=== PATIENT | female | born 1935 | race Caucasian/White ===

== ENCOUNTER 2017-05-03 18:34 | Observation (INO) ==
--- NOTE | 2017-05-03 18:58 | Emergency Department Note ---
Disposition Clinical Impression: Elevated CK Altered mental status Qualifiers: Altered mental status type: unspecified Qualified Code(s): R41.82 - Altered mental status, unspecified Disposition: Admitted As Inpatient Condition: Good Referrals: Tawana Downs MD [Primary Care Provider] - Forms: ED Satisfaction Letter Time of Disposition: 20:35 Altered Mental Status HPI - General Chief Complaint: ED Altered Mental Status Stated Complaint: AMS Time Seen by Provider: 05/03/17 18:40 Source: patient Mode of arrival: EMS Limitations: altered mental status Nursing Notes Reviewed: Yes Vital Signs Reviewed: Yes - History of Present Illness HPI Narrative: 81-year-old female unknown medical history presents to the ER via EMS due to altered mental status. Reports that she lives in an independent living facility and was last seen at her baseline yesterday evening. He reports that today she did not go to dinner so her neighbor went to check on her and the patient did not recognize her which is unusual. EMS was called and the patient was prepped for evaluation. He reports that in transit her Accu-Chek was low so she was given D50. Upon arrival her recheck was around 220. She is alert to person only. She denies any current complaints. complaint: altered mental status Onset (ago): day(s) Timing confirmed by: other Pain Severity: none Context: unknown Associated symptoms: Reports: denies other symptoms Treatments prior to arrival: glucose - Related Data Home Medications Medication Instructions Recorded Confirmed Acetaminophen [Tylenol] 650 mg PO BID PRN 07/30/15 11/08/15 Cholecalciferol (Vitamin D3) 400 unit PO DAILY 07/30/15 11/08/15 [Vitamin D3] Diclofenac Sodium [Voltaren] 75 mg PO BID 07/30/15 11/08/15 Magnesium Oxide [Magnesium] 400 mg PO DAILY 07/30/15 11/08/15 Multivitamin/Iron/Folic Acid 1 each PO DAILY 07/30/15 11/08/15 [Centrum Complete Multivit Tab] Omeprazole [PriLOSEC] 20 mg PO BID 07/30/15 11/08/15 Pantoprazole Sodium [Protonix] 40 mg PO DAILY 07/30/15 11/08/15 Hlwxuyr-Uiyymlxzu-Huqe Tablet 1 tab PO DAILY 11/08/15 11/08/15 TraZODone 100 mg PO HS 11/08/15 11/08/15 Allergies Allergy/AdvReac Type Severity Reaction Status Date / Time celecoxib [From Celebrex] Allergy Intermediate Rash Verified 05/15/16 14:37 codeine AdvReac Severe Confusion Verified 05/15/16 14:37 meperidine [From Demerol] AdvReac Severe Nausea Verified 05/15/16 14:37 gabapentin AdvReac Intermediate Confusion Verified 05/15/16 14:37 All systems ED: reviewed and negative except as stated. Constitutional: Denies: fever Cardiovascular: Denies: chest pain Respiratory: Denies: dyspnea Gastrointestinal: Denies: abdominal pain Genitourinary: Denies: dysuria Past Medical History - Past Medical History Attestation: Yes The following information was validated with the patient. Source: old records reviewed Medical history: Reports: arthritis, GERD, other Surgical history: Reports: hip replacement, hysterectomy, knee replacement, other Psychiatric history: Reports: no psych history - Social History Smoking Status: Never smoker Smokeless Tobacco Status: No Alcohol use: Reports: none Drug use: Reports: none Physical Exam - General Limitations: altered mental status General appearance: alert, in no apparent distress - Head Head exam: atraumatic, normocephalic - Eye Eye exam: Present: normal appearance, EOMI - ENT ENT exam: normal exam - Neck Neck exam: Present: normal inspection - Chest Chest inspection: Present: normal inspection - Respiratory Respiratory exam: Present: normal lung sounds bilaterally - Cardiovascular Cardiovascular exam: Present: regular rate, normal rhythm, normal heart sounds - Abdominal Exam Abdominal exam: Present: soft, Non-Tender. Absent: tenderness, distention, guarding, rigidity - Extremities Exam Extremities exam: Present: normal inspection, full ROM - Expanded Upper Extremity Exam Shoulder exam: Present: normal inspection, full ROM Arm exam: Present: normal inspection, full ROM Elbow exam: Present: normal inspection, full ROM Forearm/Wrist exam: Present: normal inspection, full ROM Hand exam: Present: normal inspection, full ROM Vascular exam: Normal: radial pulse - Expanded Lower Extremity Exam Hip/Pelvis exam: Present: normal inspection, full ROM Upper leg exam: Present: normal inspection, full ROM Knee exam: Present: normal inspection, full ROM Lower leg exam: Present: normal inspection, full ROM Ankle exam: Present: normal inspection, full ROM Foot/toe exam: Present: normal inspection, full ROM Neurovascular/Tendon exam: Absent: motor deficit, sensory deficit - Neurological Exam Neurological exam: Present: alert, other (Alert. GCS 14. Moves all extremities equally. Follows commands.). Absent: oriented X3 - Expanded Neurological Exam Patient oriented to: Present: person Coma Scale Eye Opening: Spontaneous Coma Scale Motor Response: Obeys Commands Coma Scale Verbal Response: Confused Coma Scale Total: 14 - Psychiatric Psychiatric exam: Present: normal affect - Skin Skin exam: Present: warm, dry, intact Course Course Narrative: Patient seen and examined. She is alert and oriented 1 here. She has a nonfocal exam and is following commands with a GCS of 14. We will obtain a CT scan of her head as well as an EKG, chest x-ray as well as labs including troponin, TSH and urinalysis. Patient will require admission for altered mental status. Vital Signs Temperature 98.1 F 05/03/17 18:38 Pulse Rate 104 05/03/17 18:38 Respiratory Rate 15 05/03/17 18:38 Blood Pressure 178/93 05/03/17 18:38 O2 Sat by Pulse Oximetry 100 05/03/17 18:38 Temperature 98.1 F 05/03/17 19:03 Pulse Rate 101 05/03/17 20:36 Respiratory Rate 21 05/03/17 20:36 Blood Pressure 124/78 05/03/17 20:36 O2 Sat by Pulse Oximetry 96 05/03/17 20:36 Oxygen Delivery Oxygen Delivery Room Air Altered Mental Status - [facility] Narrative Medical decision making narrative: 81-year-old female presents to the ER due to altered mental status. She is alert here but is otherwise unable to answer any questions. Last known well was yesterday evening. She is afebrile and nontoxic in appearance. She moves all extremities. She does follow commands. Head CT shows no acute antibodies. She has a slight white count however her chest x-ray and urinalysis are unremarkable. Patient admitted to the hospitalist service for altered mental status. - Lab Data Lab results reviewed: Yes I reviewed the patient's lab results. Result diagrams: 05/03/17 18:57 05/03/17 18:57 Lab Results 05/03/17 05/03/17 05/03/17 Range/Units 18:40 18:50 18:50 WBC (4.3-11.1) K/mcL RBC (3.82-4.97) M/mcL Hgb (11.5-15.4) g/dL Hct (35.3-44.9) % MCV (83.0-100.0) fL MCH (28.0-33.3) pg MCHC (31.6-35.5) g/dL RDW (11.5-14.5) % Plt Count (140-400) K/mcL MPV (9.4-12.4) fL Immature Gran % (0-4) % Seg Neutrophils % % Lymphocytes % % Monocytes % % Eosinophils % % Basophils % % Neutrophils # (1.6-8.9) K/mcL Lymphocytes # (0.6-4.6) K/mcL Monocytes # (0.0-1.3) K/mcL Eosinophils # (0.0-0.6) K/mcL Basophils # (0.0-0.2) K/mcL PT (9.4-12.1) Seconds INR APTT (26.0-36.0) Seconds Sodium (136-145) mEq/L Potassium (3.5-4.5) mEq/L Chloride (98-109) mEq/L Carbon Dioxide (19-29) mEq/L BUN (7-20) mg/dL Creatinine (0.57-1.11) mg/dL Est GFR ( Amer) (> 60) Est GFR (Non-Af Amer) (> 60) BUN/Creatinine Ratio (6-26) Glucose (70-99) mg/dL POC Glucose 194 H (58-89) Calculated Osmolality (280-300) Calcium (8.6-10.8) mg/dL Total Bilirubin (0.2-1.2) mg/dL Direct Bilirubin (0.0-0.5) mg/dL Indirect Bilirubin (0.0-1.2) mg/dL AST (5-34) Units/L ALT (0-55) Units/L Alkaline Phosphatase (38-126) Units/L Ammonia (18-72) mcmol/L Creatine Kinase (29-168) Units/L Troponin I (0-0.03) ng/mL Serum Total Protein (6.0-8.3) g/dL Albumin (3.5-5.0) g/dL Globulin (2.4-3.5) g/dL Albumin/Globulin Ratio (1.1-2.2) TSH (0.350-4.840) mcIU/mL Urine Color Yellow (Yellow) Urine Clarity Clear (Clear) Urine pH 7.5 (5.0-8.0) pH Units Ur Specific Boron 1.013 (1.010-1.025) Urine Protein Trace (Neg-Trace) mg/dL Urine Glucose (UA) Normal (Normal) mg/dL Urine Ketones Trace H (Negative) mg/dL Urine Blood Negative (Negative) Urine Nitrite Negative (Negative) Urine Bilirubin Negative (Negative) Urine Urobilinogen Normal (Normal) mg/dL Ur Leukocyte Esterase Negative (Negative) Urine Microscopic RBC 0-3 (0-3) per hpf Urine Microscopic WBC 0-3 (0-3) per hpf Ur Squamous Epith Cells None Seen (None-Few) per lpf Urine Bacteria None Seen (None-Few) per hpf Hyaline Casts None Seen (None-Few) per lpf Ur Culture Indicated? NO (NO) Urine Opiates Screen Negative (Kinaiy=702) ng/mL Ur Barbiturates Screen Negative (Knnlhy=123) ng/mL Ur Phencyclidine Scrn Negative (Cutoff=25) ng/mL Ur Amphetamines Screen Negative (Ffkijs=3704) ng/mL U Benzodiazepines Scrn Negative (Pbrdme=607) ng/mL Urine Cocaine Screen Negative (Cutoff= 300) ng/mL U Marijuana (THC) Screen Negative (Cutoff = 50) ng/mL Ethyl Alcohol (0-10) mg/dL 05/03/17 05/03/17 05/03/17 Range/Units 18:57 18:57 18:57 WBC 14.6 H (4.3-11.1) K/mcL RBC 4.47 (3.82-4.97) M/mcL Hgb 12.6 (11.5-15.4) g/dL Hct 38.0 (35.3-44.9) % MCV 85.0 (83.0-100.0) fL MCH 28.2 (28.0-33.3) pg MCHC 33.2 (31.6-35.5) g/dL RDW 13.7 (11.5-14.5) % Plt Count 239 (140-400) K/mcL MPV 10.1 (9.4-12.4) fL Immature Gran % 0.3 (0-4) % Seg Neutrophils % 84.5 % Lymphocytes % 8.2 % Monocytes % 6.8 % Eosinophils % 0.1 % Basophils % 0.1 % Neutrophils # 12.4 H (1.6-8.9) K/mcL Lymphocytes # 1.2 (0.6-4.6) K/mcL Monocytes # 1.0 (0.0-1.3) K/mcL Eosinophils # 0.0 (0.0-0.6) K/mcL Basophils # 0.0 (0.0-0.2) K/mcL PT 12.0 (9.4-12.1) Seconds INR 1.1 APTT 35.6 (26.0-36.0) Seconds Sodium 142 (136-145) mEq/L Potassium 3.4 L (3.5-4.5) mEq/L Chloride 106 (98-109) mEq/L Carbon Dioxide 22 (19-29) mEq/L BUN 16 (7-20) mg/dL Creatinine 0.84 (0.57-1.11) mg/dL Est GFR ( Amer) > 60 (> 60) Est GFR (Non-Af Amer) > 60 (> 60) BUN/Creatinine Ratio 19 (6-26) Glucose 167 H (70-99) mg/dL POC Glucose (58-89) Calculated Osmolality 299 (280-300) Calcium 8.9 (8.6-10.8) mg/dL Total Bilirubin 0.7 (0.2-1.2) mg/dL Direct Bilirubin 0.3 (0.0-0.5) mg/dL Indirect Bilirubin 0.4 (0.0-1.2) mg/dL AST 25 (5-34) Units/L ALT 19 (0-55) Units/L Alkaline Phosphatase 116 (38-126) Units/L Ammonia (18-72) mcmol/L Creatine Kinase 257 H (29-168) Units/L Troponin I (0-0.03) ng/mL Serum Total Protein 7.2 (6.0-8.3) g/dL Albumin 3.8 (3.5-5.0) g/dL Globulin 3.4 (2.4-3.5) g/dL Albumin/Globulin Ratio 1.1 (1.1-2.2) TSH 1.101 (0.350-4.840) mcIU/mL Urine Color (Yellow) Urine Clarity (Clear) Urine pH (5.0-8.0) pH Units Ur Specific Boron (1.010-1.025) Urine Protein (Neg-Trace) mg/dL Urine Glucose (UA) (Normal) mg/dL Urine Ketones (Negative) mg/dL Urine Blood (Negative) Urine Nitrite (Negative) Urine Bilirubin (Negative) Urine Urobilinogen (Normal) mg/dL Ur Leukocyte Esterase (Negative) Urine Microscopic RBC (0-3) per hpf Urine Microscopic WBC (0-3) per hpf Ur Squamous Epith Cells (None-Few) per lpf Urine Bacteria (None-Few) per hpf Hyaline Casts (None-Few) per lpf Ur Culture Indicated? (NO) Urine Opiates Screen (Ydjgva=101) ng/mL Ur Barbiturates Screen (Ykxvdm=019) ng/mL Ur Phencyclidine Scrn (Cutoff=25) ng/mL Ur Amphetamines Screen (Zvaspz=9420) ng/mL U Benzodiazepines Scrn (Tjcimd=066) ng/mL Urine Cocaine Screen (Cutoff= 300) ng/mL U Marijuana (THC) Screen (Cutoff = 50) ng/mL Ethyl Alcohol < 10 (0-10) mg/dL 05/03/17 05/03/17 Range/Units 18:57 18:57 WBC (4.3-11.1) K/mcL RBC (3.82-4.97) M/mcL Hgb (11.5-15.4) g/dL Hct (35.3-44.9) % MCV (83.0-100.0) fL MCH (28.0-33.3) pg MCHC (31.6-35.5) g/dL RDW (11.5-14.5) % Plt Count (140-400) K/mcL MPV (9.4-12.4) fL Immature Gran % (0-4) % Seg Neutrophils % % Lymphocytes % % Monocytes % % Eosinophils % % Basophils % % Neutrophils # (1.6-8.9) K/mcL Lymphocytes # (0.6-4.6) K/mcL Monocytes # (0.0-1.3) K/mcL Eosinophils # (0.0-0.6) K/mcL Basophils # (0.0-0.2) K/mcL PT (9.4-12.1) Seconds INR APTT (26.0-36.0) Seconds Sodium (136-145) mEq/L Potassium (3.5-4.5) mEq/L Chloride (98-109) mEq/L Carbon Dioxide (19-29) mEq/L BUN (7-20) mg/dL Creatinine (0.57-1.11) mg/dL Est GFR ( Amer) (> 60) Est GFR (Non-Af Amer) (> 60) BUN/Creatinine Ratio (6-26) Glucose (70-99) mg/dL POC Glucose (58-89) Calculated Osmolality (280-300) Calcium (8.6-10.8) mg/dL Total Bilirubin (0.2-1.2) mg/dL Direct Bilirubin (0.0-0.5) mg/dL Indirect Bilirubin (0.0-1.2) mg/dL AST (5-34) Units/L ALT (0-55) Units/L Alkaline Phosphatase (38-126) Units/L Ammonia 21 (18-72) mcmol/L Creatine Kinase (29-168) Units/L Troponin I 0.01 (0-0.03) ng/mL Serum Total Protein (6.0-8.3) g/dL Albumin (3.5-5.0) g/dL Globulin (2.4-3.5) g/dL Albumin/Globulin Ratio (1.1-2.2) TSH (0.350-4.840) mcIU/mL Urine Color (Yellow) Urine Clarity (Clear) Urine pH (5.0-8.0) pH Units Ur Specific Boron (1.010-1.025) Urine Protein (Neg-Trace) mg/dL Urine Glucose (UA) (Normal) mg/dL Urine Ketones (Negative) mg/dL Urine Blood (Negative) Urine Nitrite (Negative) Urine Bilirubin (Negative) Urine Urobilinogen (Normal) mg/dL Ur Leukocyte Esterase (Negative) Urine Microscopic RBC (0-3) per hpf Urine Microscopic WBC (0-3) per hpf Ur Squamous Epith Cells (None-Few) per lpf Urine Bacteria (None-Few) per hpf Hyaline Casts (None-Few) per lpf Ur Culture Indicated? (NO) Urine Opiates Screen (Pprjbp=591) ng/mL Ur Barbiturates Screen (Attwku=193) ng/mL Ur Phencyclidine Scrn (Cutoff=25) ng/mL Ur Amphetamines Screen (Gbxzaj=4113) ng/mL U Benzodiazepines Scrn (Behcvi=379) ng/mL Urine Cocaine Screen (Cutoff= 300) ng/mL U Marijuana (THC) Screen (Cutoff = 50) ng/mL Ethyl Alcohol (0-10) mg/dL - Radiology Data Radiology results reviewed: Yes I reviewed the patient's radiology results. Chest X-Ray 05/03/17 18:41 IMPRESSION: No acute process. D/ / Sung Martins MD / Sung Martins MD Interpreting Provider: Sung Martins MD Head CT 05/03/17 18:41 IMPRESSION: Exam mildly limited by patient motion artifact. No acute intracranial abnormality identified. D/ / Sung Martnis MD / Sung Martins MD Interpreting Provider: Sung Martins MD - EKG Data EKG attestation: Yes I reviewed and interpreted this EKG. EKG results narrative: EKG demonstrated sinus tachycardia with a rate of 104. Right axis deviation. Prolonged NH interval of 208. Other intervals normal. Poor R wave progression. No gross ST elevations or depressions. No acute ischemic findings. S.B.AJohn - S.B.A.RRadha Situation: Demographics, MOA Background: Presenting Complaint, Relevant PMH, Meds, & Allergies Assessment: Vital Signs, Course and respsone to treatment, Exam Concerns, Patient/Family Expectation, Pertinant Lab Results Recommendation: Barrier(s) to disposition, Recommendation based on pending studies, treatments, or consults S.B.A.RRadha Report Given to: Dr. Chantal Shook Repor Time: 20:35 (requests tele) Attestation Statement - Attestation Attestation: I, Hugh Gallegos MD, personally evaluated this patient and discussed their management with the resident physician. I reviewed the resident's note and agree with the documented findings, medical decision making, and plan of care. 81-year-old female presents to the emergency department with altered mental status. Last known well was yesterday. Patient's neighbor went in to check on her because she had not seen her all day and tried to call her and did not get an answer. The neighbor found her in her bed and her night clothes. Patient confused and disoriented and only able to speak a few words. On examination patient is a well-developed obese elderly female in no acute distress. She is alert. She does follow commands. There is no cyanosis or diaphoresis. Patient speaks a few words but unable to answer questions. HEENT grossly normal. PERRL. Mucous membranes are moist. Neck is supple with no obvious tenderness or meningismus. Chest is nontender to palpation. Breath sounds are clear and equal bilaterally. Heart regular rate and rhythm. Abdomen soft with normal bowel sounds. No apparent tenderness. No tympany or distention. Extremities are nontender with no pedal edema. Patient is restless with some involuntary movements of all extremities. No obvious focal deficits. EKG shows sinus tachycardia with a heart rate of 104, no acute changes or arrhythmia. Head CT negative. Chest x-ray negative. Labs reviewed. The hospitalist, Dr. Cornejo, was consulted and accepted admission of the patient.
[2017-05-03 19:04] LABS: Bilirubin,Urine Negative (Negative); Blood,Urine Negative (Negative); Clarity,Urine Clear (Clear); Color,Urine Yellow (Yellow); Glucose,Urine (UA) Normal (Normal); Ketones,Urine Trace mg/dL (Negative); Leukocyte Esterase,Urine Negative (Negative); Nitrite,Urine Negative (Negative); PH,Urine 7.5 pH Units (5.0-8.0); Protein,Urine Trace mg/dL (Neg-Trace); Specific Gravity,Urine 1.013 (1.010-1.025); Urobilinogen,Urine Normal (Normal)
[2017-05-03 19:05] LABS: Basophils % 0.1 %; Eosinophils % 0.1 %; Hemoglobin 12.6 g/dL (11.5-15.4); Immature Granulocytes % 0.3 % (0-4); Lymphocytes # 1.2 K/mcL (0.6-4.6); Lymphocytes % 8.2 %; Mean Corpuscular HGB Conc 33.2 g/dL (31.6-35.5); Mean Corpuscular Hemoglobin 28.2 pg (28.0-33.3); Mean Platelet Volume 10.1 fL (9.4-12.4); Monocytes % 6.8 %; Neutrophils # 12.4 K/mcL (1.6-8.9); Platelet Count 239 K/mcL (140-400); Red Blood Count 4.47 M/mcL (3.82-4.97); Red Cell Distribution Width 13.7 % (11.5-14.5); Segmented Neutrophils % 84.5 %
[2017-05-03 19:06] LABS: Bacteria,Urine None Seen per hpf (None-Few); Hyaline Casts,Urine None Seen per lpf (None-Few); RBC,Urine 0-3 per hpf (0-3); Squamous Epithelial Cell,Urine None Seen per lpf (None-Few); WBC,Urine 0-3 per hpf (0-3)
[2017-05-03 19:15] LABS: INR 1.1
[2017-05-03 19:17] LABS: Amphetamine Screen,Urine Negative ng/mL (Cutoff=1000); Barbiturate Screen,Urine Negative ng/mL (Cutoff=200); Benzodiazepines Screen,Urine Negative ng/mL (Cutoff=200); Cannabinoid Screen,Urine Negative ng/mL (Cutoff = 50); Cocaine Screen,Urine Negative ng/mL (Cutoff= 300); Opiate Screen,Urine Negative ng/mL (Cutoff=300); Phencyclidine Screen,Urine Negative ng/mL (Cutoff=25)
[2017-05-03 19:18] LABS: Activated Partial Thrombo Time 35.6 Seconds (26.0-36.0)
[2017-05-03 19:24] LABS: Alanine Aminotransferase 19 Units/L (0-55); Albumin 3.8 g/dL (3.5-5.0); Albumin/Globulin Ratio 1.1 (1.1-2.2); Alkaline Phosphatase 116 Units/L (38-126); Aspartate Amino Transferase 25 Units/L (5-34); BUN/Creatinine Ratio 19 (6-26); Bilirubin,Direct 0.3 mg/dL (0.0-0.5); Bilirubin,Indirect 0.4 mg/dL (0.0-1.2); Bilirubin,Total 0.7 mg/dL (0.2-1.2); Blood Urea Nitrogen 16 mg/dL (7-20); Calcium 8.9 mg/dL (8.6-10.8); Carbon Dioxide 22 mEq/L (19-29); Chloride 106 mEq/L (98-109); Creatine Kinase 257 Units/L (29-168); Globulin 3.4 g/dL (2.4-3.5); Glucose 167 mg/dL (70-99); Osmolality,Calculated 299 (280-300); Potassium 3.4 mEq/L (3.5-4.5); Sodium 142 mEq/L (136-145); Total Protein 7.2 g/dL (6.0-8.3); eGFR For African Americans > 60 (> 60); eGFR For Non-African Americans > 60 (> 60)
[2017-05-03 19:26] LABS: Ethanol < 10 mg/dL (0-10)
[2017-05-03] MEDS ORDERED: 0.9 % Sodium Chloride 1,000 ML IVC ONE (19:41)
[2017-05-03 19:44] LABS: Thyroid Stimulating Hormone 1.101 mcIU/mL (0.350-4.840)
[2017-05-03] MEDS ORDERED: *HR* Morphine 2 MG/ML SYRINGE IVP PRN (23:41)
[2017-05-03] MEDS ORDERED: Naloxone 0.4 MG/ML INJ IVP PRN (23:41)
[2017-05-03] MEDS ORDERED: *HR* OxyCODONE Immed Rel 5 MG TABLET PO PRN (23:41)
--- NOTE | 2017-05-03 23:51 | Internal Med History&Physical ---
Date of Encounter: 05/03/17 Time of Encounter: 23:46 Assessment and Plan (1) Extrapyramidal and movement disorder, unspecified Current visit: Yes Status: Acute Consider possible tardive dyskinesia possibly caused by Risperdal May start clonazepam, Ativan as needed Neurology consult needs to be called in the morning, consider benztropine Fall precautions MRI of the brain Omeprazole for GI prophylaxis and subcutaneous heparin for DVT prophylaxis. Patient will be admitted for observation. DNR CC arrest DNI. Time spent on this admission 40 minutes (2) Accelerated hypertension Current visit: Yes Status: Acute Order hydralazine IV as needed (3) Leukocytosis Current visit: Yes Status: Acute Unclear etiology, no evidence of infection Qualifiers: Leukocytosis type: unspecified Qualified Code(s): D72.829 - Elevated white blood cell count, unspecified (4) Hypokalemia Current visit: Yes Status: Acute Replete as needed (5) Altered mental status Current visit: Yes Status: Acute Qualifiers: Altered mental status type: unspecified Qualified Code(s): R41.82 - Altered mental status, unspecified Internal Medicine - H&P: HPI Chief complaint: After mental status Admitted From: Emergency Dept History of present illness: Ms. Mariee is a 81 year old female with a past medical history of GERD, hyperlipidemia, who came to the emergency room complaining of confusion. Apparently she did not attend a meal with one of his neighbors which was very unusual, the patient was found at home confused. Apparently her blood sugars were critically low for which she was given D50. Also she has been showing abnormal movements especially in her shoulders and upper and lower extremities. The patient has been on Risperdal for a few months and is not sure whether she has been taking it only once a day or several times a day. White blood cell count is 14.6 potassium 3.[address] scan and did not show any abnormalities but showed motion artifact. Chest x-ray is unremarkable, urine tox screen is negative, blood pressure is 178/93. Heart rate was 104 but is normal at the moment in the 70s. 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) Psychiatric history: no psych history - Past Surgical History Surgical History: hip replacement, hysterectomy, knee replacement, other ( Partial bowel resection) - Social History Smoking Status: Never smoker Smokeless Tobacco Status: No Alcohol use: none Drug use: none - Family History Father Living Status: Hx Family GI Disorders: Yes (AAA) - Additional Family History Additional family history: Mother with breast cancer, father with aneurysm and brother with rheumatic fever Internal Medicine - H&P: Meds Acetaminophen [Tylenol] 650 mg PO BID PRN 07/30/15 [History] Cholecalciferol (Vitamin D3) [Vitamin D3] 400 unit PO DAILY 07/30/15 [History] Diclofenac Sodium [Voltaren] 75 mg PO BID 07/30/15 [History] Magnesium Oxide [Magnesium] 400 mg PO DAILY 07/30/15 [History] Multivitamin/Iron/Folic Acid [Centrum Complete Multivit Tab] 1 each PO DAILY 07/14 [History] Omeprazole [PriLOSEC] 20 mg PO BID 07/30/15 [History] Pantoprazole Sodium [Protonix] 40 mg PO DAILY 07/30/15 [History] Bzzrmko-Kizmwpghr-Gcgy Tablet 1 tab PO DAILY 11/08/15 [History] 3 Allergy/AdvReac Type Severity Reaction Status Date / Time celecoxib [From Celebrex] Allergy Intermediate Rash Verified 05/15/16 14:37 codeine AdvReac Severe Confusion Verified 05/15/16 14:37 meperidine [From Demerol] AdvReac Severe Nausea Verified 05/15/16 14:37 gabapentin AdvReac Intermediate Confusion Verified 05/15/16 14:37 All Systems PM: A 10-system review of systems was performed and is negative for pertinent findings except as documented above in the HPI. Review of systems: Patient is less confused at the moment, denies any chest or shortness of breath , abnormal movements continue. Other systems are also 10 revealed negative - Constitutional Vitals: Temp Pulse Resp BP Pulse Ox 98.5 F 94 18 145/61 94 05/03/17 22:05 05/03/17 22:05 05/03/17 22:05 05/03/17 22:05 05/03/17 22:05 General appearance: Present: A&O X 3 Exam: Constant extrapyramidal abnormal movements and shoulders upper and lower extremities - Head Head exam: Present: atraumatic, normocephalic - Eye Eye exam: Present: PERRL, conjuntiva pink, sclera anicteric Pupils: Present: PERRL - Neck Neck exam general surgery: Present: supple, trachea midline. Absent: lymphadenopathy - Respiratory Respiratory exam: Present: CTAB. Absent: accessory muscle use, rales, rhonchi, wheezes - Cardiovascular Cardiovascular exam: Present: RRR, +S1, +S2. Absent: diastolic murmur, gallop, rubs, systolic murmur - GI/Abdominal GI/Abdominal exam: Present: normal bowel sounds, soft, no peritoneal signs. Absent: distended, tenderness - Extremities Exam Extremities exam: Present: warm, radial pulses palpable and symmetrical. Absent : calf tenderness, cyanotic, pedal edema - Neurological Exam Neurological exam: Present: CN II-XII intact, oriented X3, no focal deficits. Absent: pronater drift, facial droop, speech deficit - Skin Skin exam: Present: dry, intact Internal Med - H&P Results - Labs CBC & Chem 7: 05/03/17 18:57 05/03/17 18:57
[2017-05-04] MEDS: *HR* Heparin 5,000 UNIT/ML VIAL SQ SCH ×3 (00:21→17:40)
[2017-05-04] MEDS: clonazePAM 0.5 MG TABLET PO SCH ×3 (00:21→20:34)
[2017-05-04] MEDS: D5% in 0.45% NACL w KCl 10 MEQ/1,000 ML MLS IVC SCH ×2 (00:51→10:58)
[2017-05-04 04:02] LABS: Hemoglobin 11.5 g/dL (11.5-15.4); Mean Corpuscular HGB Conc 32.9 g/dL (31.6-35.5); Mean Corpuscular Hemoglobin 28.6 pg (28.0-33.3); Mean Corpuscular Volume 87.1 fL (83.0-100.0); Mean Platelet Volume 10.7 fL (9.4-12.4); Platelet Count 237 K/mcL (140-400); Red Blood Count 4.02 M/mcL (3.82-4.97); Red Cell Distribution Width 13.9 % (11.5-14.5)
[2017-05-04 04:19] LABS: BUN/Creatinine Ratio 18 (6-26); Blood Urea Nitrogen 14 mg/dL (7-20); Calcium 8.6 mg/dL (8.6-10.8); Carbon Dioxide 22 mEq/L (19-29); Chloride 109 mEq/L (98-109); Glucose 117 mg/dL (70-99); Magnesium 1.9 mg/dL (1.6-2.6); Osmolality,Calculated 294 (280-300); Potassium 3.5 mEq/L (3.5-4.5); Sodium 141 mEq/L (136-145); eGFR For African Americans > 60 (> 60); eGFR For Non-African Americans > 60 (> 60)
--- NOTE | 2017-05-04 14:48 | Neurology - Consult Note ---
Date of Encounter: 05/04/17 Time of Encounter: 14:45 Assessment and Plan (1) Altered mental status Current Visit: No Status: Resolved This patient did experience transient alterations in mental status which have rapidly improved back to her normal baseline. Differentials to consider might have been transient hypoglycemia, perhaps it was a mixup with her medications. Seizure activity is lower on the differential however she did have elevated white count as well as elevated CK levels. At this juncture I would simply like to obtain an EEG I do not feel that it is necessary to start antiepileptic drugs at this time. Is no evidence of acute ischemia, no evidence of central nervous system infection. Qualifiers: Altered mental status type: transient alteration of awareness Qualified Code(s): R40.4 - Transient alteration of awareness History of Present Illness HPI: Ms. Mariee is a 81 year old female who is seen for neurologic evaluation secondary to acute mental status changes which now resolved. Apparently on the evening of 05/02/2017 patient was found by neighbors and other family members to been acutely confused. The patient does recall falling and states that she left the door unlocked purposely so that friends or family might be able to come in and help her. Her granddaughter is present today and mentions that yesterday she was very confused and difficulty following commands and had difficulty with verbal expression. She denies headache. She does live home alone. Apparently she had not known today and according to EMS when he initially tried a One Touch glucose reading it did not register. I did ask her whether or not it was possible that she may have gotten her meds mixed up and she states that it could possible. There was no tongue biting or loss of bladder or bowel continence. Currently she is pretty much back to her normal baseline. She works as a volunteer here at the hospital. MRI scan of the brain does reveal chronic ischemic changes particularly in the isaiah and in the centrum semiovale ovale however no acute infarct is identified. 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) Psychiatric history: no psych history - Past Surgical History Surgical History: hip replacement, hysterectomy, knee replacement, other ( Partial bowel resection) - Social History Smoking Status: Never smoker Smokeless Tobacco Status: No Alcohol use: none Drug use: none - Family History Father Living Status: Hx Family GI Disorders: Yes (AAA) Medications and Allergies Acetaminophen [Tylenol] 650 mg PO BID PRN 07/30/15 [History] Cholecalciferol (Vitamin D3) [Vitamin D3] 400 unit PO DAILY 07/30/15 [History] Diclofenac Sodium [Voltaren] 75 mg PO BID 07/30/15 [History] Magnesium Oxide [Magnesium] 400 mg PO DAILY 07/30/15 [History] Multivitamin/Iron/Folic Acid [Centrum Complete Multivit Tab] 1 each PO DAILY 07/14 [History] Omeprazole [PriLOSEC] 20 mg PO BID 07/30/15 [History] Ygmomrh-Sxhdqvfwb-Ugum Tablet 1 tab PO DAILY 11/08/15 [History] Baclofen 20 mg PO TID 05/04/17 [History] Fluticasone Propionate Nasal [Flonase] 2 spr NS DAILY 05/04/17 [History] Sertraline [Zoloft] 100 mg PO DAILY 05/04/17 [History] 3 Allergy/AdvReac Type Severity Reaction Status Date / Time celecoxib [From Celebrex] Allergy Intermediate Rash Verified 05/15/16 14:37 codeine AdvReac Severe Confusion Verified 05/15/16 14:37 meperidine [From Demerol] AdvReac Severe Nausea Verified 05/15/16 14:37 gabapentin AdvReac Intermediate Confusion Verified 05/15/16 14:37 All Systems: A 10-system review of systems was performed and is negative for pertinent findings except as documented above in the HPI. Review of Systems: 10 point review of systems is consistent with a history of present illness and otherwise negative. Physical Examination - Vital Signs Vital Signs: Initial Vital Signs Temp Pulse Resp BP Pulse Ox 98.1 F 104 15 178/93 100 05/03/17 18:38 05/03/17 18:38 05/03/17 18:38 05/03/17 18:38 05/03/17 18:38 - Neurologic Detailed motor examination: full strength in all major muscle groups Motor examination - right side: 5/5: deltoids, biceps, triceps, wrist flexion, wrist extension, local coordinator, hip flexors, tibialis Anterior, quadriceps, toe extension (EHL), plantarflexion Motor examination - left side: 5/5: deltoids, biceps, triceps, wrist flexion, wrist extension, hip flexors, local coordinator, quadriceps, tibialis Anterior, toe extension (EHL), plantarflexion Mental Status Examination: awake, alert, oriented to person, oriented to place, oriented to time, follows commands appropriately, answers questions appropriately, no agnosia, no aphasia, no aproxia Cranial nerve examination: PERRL, EOMI, visual venegas intact, corneal reflexes brisk symmetrically, sensory to face intact, mastication intact, no facial asymmetry is present, no dysarthria, hearing is intact symmetrically, soft palate elevates bilaterally upon phonation, gag reflex intact, flexes SCM and trapezius muscles symmetrically with full power, tongue protrudes midline, no atrophy or facial fasiculations present Cerebellar examination: no dysmetria, no truncal ataxia, no difficulty with rapid alternating movements Results - Laboratory Findings CBC and BMP: 05/04/17 03:06 05/04/17 03:06 Abnormal lab findings: Abnormal lab results WBC 14.4 K/mcL (4.3-11.1) H 05/04/17 03:06 Hct 35.0 % (35.3-44.9) L 05/04/17 03:06 Neutrophils # 12.4 K/mcL (1.6-8.9) H 05/03/17 18:57 Glucose 117 mg/dL (70-99) H 05/04/17 03:06 POC Glucose 98 (58-89) H 05/03/17 22:16 Creatine Kinase 257 Units/L (29-168) H 05/03/17 18:57 Urine Ketones Trace mg/dL (Negative) H 05/03/17 18:50 Consult Discharge Plan - Plan Referrals: Tawana Downs MD [Primary Care Provider] -
--- NOTE | 2017-05-04 15:17 | Internal Med Progress Note ---
Date of Encounter: 05/04/17 Time of Encounter: 12:15 - Assessment and plan (1) Acute encephalopathy Current Visit: Yes Status: Resolved Assessment and plan: Could be metabolic due to hypoglycemia. No history of diabetes, blood sugars currently normal. Check hemoglobin A1c. Currently at baseline mental status. CT head showed no acute abnormality. Follow-up MRI brain. Neurology consult appreciated, recommended EEG to rule out underlying seizures. (2) Extrapyramidal and movement disorder, unspecified Current Visit: Yes Status: Acute Assessment and plan: Improved. Started on low-dose Klonopin for possible tardive dyskinesia. Risperdal on hold. Follow-up neurology. (3) Hypokalemia Current Visit: Yes Status: Resolved (4) Leukocytosis Current Visit: Yes Status: Acute Assessment and plan: Likely secondary to encephalopathy, possible seizure and metabolic stress. No e/ o infection at this time. Qualifiers: Leukocytosis type: unspecified Qualified Code(s): D72.829 - Elevated white blood cell count, unspecified (5) Essential hypertension Current Visit: Yes Status: Chronic (6) Elevated CK Current Visit: Yes Status: Acute Assessment and plan: Improving creatinine kinase, likely related to recent weakness and lying in bed for prolonged time. - Subjective Interval history: Reports feeling better; no involuntary movements or speech abnormality since yesterday, per family at bedside; no focal weakness, paresthesias, headache, dyspnea, abdominal pain, nausea, vomiting; - Constitutional Vitals: Temp Pulse Resp BP Pulse Ox 97.4 F L 70 16 159/78 98 05/04/17 10:00 05/04/17 10:00 05/04/17 10:00 05/04/17 10:00 05/04/17 10:00 General appearance: Present: A&O X 3, answers questions appropriately - Respiratory Respiratory exam: Present: CTAB. Absent: accessory muscle use, rales, rhonchi, wheezes - Cardiovascular Cardiovascular exam: Present: RRR, +S1, +S2. Absent: diastolic murmur, gallop, rubs, systolic murmur - GI/Abdominal GI/Abdominal exam: Present: normal bowel sounds, soft, no peritoneal signs. Absent: distended, tenderness - Extremities Exam Extremities exam: Present: full ROM, warm, radial pulses palpable and symmetrical. Absent: calf tenderness, cyanotic, pedal edema - Neurological Exam Neurological exam: Present: CN II-XII intact, oriented X3, no focal deficits. Absent: pronater drift, facial droop, speech deficit Internal Medicine: Result - Labs CBC & Chem 7: 05/04/17 03:06 05/04/17 03:06 Labs: Short CBC 05/04/17 Range/Units 03:06 WBC 14.4 H (4.3-11.1) K/mcL Hgb 11.5 (11.5-15.4) g/dL Hct 35.0 L (35.3-44.9) % Plt Count 237 (140-400) K/mcL BMP 05/04/17 03:06 Sodium 141 Potassium 3.5 Chloride 109 Carbon Dioxide 22 BUN 14 Creatinine 0.77 Glucose 117 H Calcium 8.6 - ABG Interpretation ABG results: PT/INR, D-dimer PT 12.0 Seconds (9.4-12.1) 05/03/17 18:57 - Impressions Impressions Brain MRI 05/04/17 23:41 IMPRESSION: No evidence of acute intracranial abnormality. Mild chronic small vessel ischemic disease within the periventricular white matter. Mild atrophy. D/ / 05/04/2017 14:25:20 [facility] MD [facility] Inter[facility]ting Provider: Jerson Wright MD Consult Discharge Plan - Plan Referrals: Tawana Downs MD [Primary Care Provider] -
--- NOTE | 2017-05-04 16:45 | Electrocardiograph Report ---
[address] [place], [place] [address] Test Date: 2017-05-03 Pat Name: Massiel Mariee Department: 103 Room: 3B64 Gender: F Chief Unit Forester: [id number] : 1935 Requested By: Petra Giron Order Number: [id number] Reading MD: Lisa Odom Measurements Intervals [place] Rate: 104 P: 35 VA: 208 QRS: -28 QRSD: 70 T: 14 QT: 406 QTc: 467 Interpretive Statements SINUS TACHYCARDIA VOLTAGE CRITERIA FOR LVH POSSIBLE ANTERIOR MYOCARDIAL INFARCTION OF INDETERMINATE AGE POSSIBLE INFERIOR MYOCARDIAL INFARCTION OF INDETERMINATE AGE PROLONGED QT INTERVAL Electronically Signed On 05-04-2017 16:44:19 EST by Lisa Odom
[2017-05-05] MEDS: *HR* LORazepam 0.5 MG TABLET PO PRN (04:04)
[2017-05-05] MEDS: *HR* Heparin 5,000 UNIT/ML VIAL SQ SCH ×2 (06:25→18:14)
[2017-05-05 06:56] LABS: Basophils # 0.1 K/mcL (0.0-0.2); Basophils % 0.5 %; Eosinophils # 0.1 K/mcL (0.0-0.6); Eosinophils % 1.3 %; Hematocrit 40.6 % (35.3-44.9); Immature Granulocytes % 0.4 % (0-4); Lymphocytes % 21.3 %; Mean Corpuscular Volume 87.5 fL (83.0-100.0); Mean Platelet Volume 10.5 fL (9.4-12.4); Monocytes # 1.1 K/mcL (0.0-1.3); Monocytes % 11.7 %; Neutrophils # 6.2 K/mcL (1.6-8.9); Platelet Count 236 K/mcL (140-400); Red Blood Count 4.64 M/mcL (3.82-4.97); Red Cell Distribution Width 14.3 % (11.5-14.5); Segmented Neutrophils % 64.8 %
[2017-05-05 07:05] LABS: BUN/Creatinine Ratio 14 (6-26); Blood Urea Nitrogen 10 mg/dL (7-20); Calcium 9.2 mg/dL (8.6-10.8); Carbon Dioxide 19 mEq/L (19-29); Chloride 108 mEq/L (98-109); Glucose 98 mg/dL (70-99); Osmolality,Calculated 287 (280-300); Potassium 3.5 mEq/L (3.5-4.5); Sodium 139 mEq/L (136-145); eGFR For African Americans > 60 (> 60); eGFR For Non-African Americans > 60 (> 60)
[2017-05-05] MEDS: clonazePAM 0.5 MG TABLET PO SCH ×2 (09:32→20:58)
--- NOTE | 2017-05-05 10:07 | EEG/EMG/Oth Biometrics Report ---
EEG Procedure Report Date of procedure: 05/05/17 EEG Procedure: Routine EEG Procedure Note: This is a report of a 21 channel bipolar and referential montage EEG. A posterior dominant rhythm of 8 Hz moderate voltage alpha frequency is identified symmetrically in the posterior head regions. This rhythm attenuates symmetrically with eye opening. Hyperventilation is not performed during the recording. There is no sleep architecture identified during the study. Photic stimulation is performed and does not produce a driving response. EKG rhythm strip reveals normal sinus rhythm at 78 beats per minute. Impressions: This EEG recording is within normal limits. There is no evidence of epileptiform activity identified during the recording. Comment: A normal EEG does not preclude a diagnosis of seizure or epilepsy. If the clinical suspicion for seizure activity is high, serial EEGs or perhaps a prolonged recording may increase the yield. Please correlate clinically.
[2017-05-05] MEDS ORDERED: Ondansetron 4 MG/2 ML VIAL IVP ONE (10:26)
[2017-05-05] MEDS: Ondansetron 4 MG/2 ML VIAL IVP PRN (15:46)
[2017-05-05] MEDS ORDERED: Ondansetron 4 MG/2 ML VIAL ONE (15:46)
--- NOTE | 2017-05-05 16:46 | Neurology Progress Note ---
Date of Encounter: 05/05/17 Time of Encounter: 16:41 Assessment and Plan (1) Altered mental status Current Visit: No Status: Resolved Qualifiers: Altered mental status type: transient alteration of awareness Qualified Code(s): R40.4 - Transient alteration of awareness Subjective Interval history: Chart reviewed, pt. seen and examined. She has been stable without cognitive changes since admission. Neurologic work up was negative. No further complaints. Objective - Constitutional Vitals: Temp Pulse Resp BP Pulse Ox 98.6 F 98 16 152/87 96 05/05/17 15:57 05/05/17 15:57 05/05/17 15:57 05/05/17 15:57 05/05/17 15:57 - Neurological Exam Motor Examination: Present: full strength in all major muscle groups Motor examination - right side: 5/5: deltoids, biceps, triceps, wrist flexion, wrist extension, lithographic press operator, hip flexors, tibialis Anterior, quadriceps, toe extension (EHL), plantarflexion Motor examination - left side: 5/5: deltoids, biceps, triceps, wrist flexion, wrist extension, hip flexors, lithographic press operator, quadriceps, tibialis Anterior, toe extension (EHL), plantarflexion Sensation intact: Present: intact Mental Status Examination: Present: awake, alert, oriented to person, oriented to place, oriented to time, follows commands appropriately, answers questions appropriately, no agnosia, no aphasia, no aproxia Cranial nerve examination: Present: PERRL, EOMI, visual venegas intact, corneal reflexes brisk symmetrically, sensory to face intact, mastication intact, no facial asymmetry is present, no dysarthria, hearing is intact symmetrically, soft palate elevates bilaterally upon phonation, gag reflex intact, flexes SCM and trapezius muscles symmetrically with full power, tongue protrudes midline, no atrophy or facial fasiculations present Cerebellar examination: Present: no dysmetria, no truncal ataxia, no difficulty with rapid alternating movements Results - Laboratory Findings CBC and BMP: 05/05/17 06:00 05/05/17 06:00 Abnormal lab findings: Abnormal lab results POC Glucose 98 (58-89) H 05/04/17 16:25 Creatine Kinase 257 Units/L (29-168) H 05/03/17 18:57 Urine Ketones Trace mg/dL (Negative) H 05/03/17 18:50 Consult Discharge Plan - Plan Referrals: Tawana Downs MD [Primary Care Provider] -
--- NOTE | 2017-05-05 18:24 | Internal Med Progress Note ---
Date of Encounter: 05/05/17 Time of Encounter: 15:30 - Assessment and plan (1) Acute encephalopathy Current Visit: Yes Status: Resolved Assessment and plan: Resolved. Patient has returned to baseline. Could have been metabolic due to hypoglycemia. No history of diabetes, blood sugars currently normal. A1c 5.0%. Currently at baseline mental status. CT head showed no acute abnormality. MRI brain showed no acute intracranial abnormality, mild chronic small vessel ischemic disease, mild atrophy . Patient was seen by neurology and and EEG was ordered that was within normal limits. No evidence of epileptiform activity. Vital signs are stable, labs have all returned within normal limits. Unclear etiology other than possible hypoglycemia or medication changes. Patient has returned to baseline. (2) Elevated CK Current Visit: Yes Status: Acute Assessment and plan: Improving creatinine kinase, likely related to recent weakness and lying in bed for prolonged time. Will recheck in the morning to ensure that it is still declining. (3) Accelerated hypertension Current Visit: Yes Status: Acute Assessment and plan: Patient does not appear to take any indication for hypertension at home. She has been mildly hypertensive, slightly above goal since she has been year. She has hydralazine when necessary. Will add low dose of hydrochlorothiazide and monitor for effectiveness. (4) Extrapyramidal and movement disorder, unspecified Current Visit: Yes Status: Acute Assessment and plan: Improved. Patient has been started on low-dose Klonopin for possible cardiac dyskinesia. Most likely due to Risperdal which has been held. Neurology has evaluated the patient. They have signed off. We will continue Klonopin and patient could follow up with primary care. (5) Leukocytosis Current Visit: Yes Status: Resolved Assessment and plan: Result. White count 9.6 today. Qualifiers: Leukocytosis type: unspecified Qualified Code(s): D72.829 - Elevated white blood cell count, unspecified (6) Hypokalemia Current Visit: Yes Status: Resolved Assessment and plan: Resolved. - Time Spent With Patient less than 15 minutes - Subjective Interval history: Patient was seen and assessed at 1530. She reports nausea and vomiting today. She states that she has been having vomiting since her fall at home on Thursday. She denies dizziness, headache, blurred vision, abdominal pain, chest pain, shortness of breath. - Constitutional Vitals: Temp Pulse Resp BP Pulse Ox 98.6 F 98 16 152/87 96 05/05/17 15:57 05/05/17 15:57 05/05/17 15:57 05/05/17 15:57 05/05/17 15:57 General appearance: Present: cooperative, A&O X 3, pleasant, no acute distress, answers questions appropriately - Head Head exam: Present: atraumatic, normal inspection, normocephalic - Eye Eye exam: Present: normal appearance, PERRL, conjuntiva pink, sclera anicteric - Neck Neck exam general surgery: Present: normal inspection, supple, trachea midline. Absent: lymphadenopathy, tenderness - Respiratory Respiratory exam: Present: CTAB. Absent: accessory muscle use, decreased breath sounds, rales, respiratory distress, rhonchi, wheezes - Cardiovascular Cardiovascular exam: Present: RRR, +S1, +S2. Absent: diastolic murmur, gallop, rubs, systolic murmur - GI/Abdominal GI/Abdominal exam: Present: normal bowel sounds, soft. Absent: distended, hepatomegaly, tenderness - Extremities Exam Extremities exam: Present: normal capillary refill, normal inspection, warm, radial pulses palpable and symmetrical. Absent: calf tenderness, cyanotic, pedal edema, tenderness - Neurological Exam Neurological exam: Present: alert, oriented X3, no focal deficits, strengths equal and symetr throughout. Absent: motor sensory deficit, facial droop, speech deficit - Skin Skin exam: Present: dry, intact, normal color, warm. Absent: rash Internal Medicine: Result - Labs CBC & Chem 7: 05/05/17 06:00 05/05/17 06:00 Labs: Short CBC 05/05/17 Range/Units 06:00 WBC 9.6 (4.3-11.1) K/mcL Hgb 13.0 D (11.5-15.4) g/dL Hct 40.6 (35.3-44.9) % Plt Count 236 (140-400) K/mcL Neutrophils # 6.2 (1.6-8.9) K/mcL BMP 05/05/17 06:00 Sodium 139 Potassium 3.5 Chloride 108 Carbon Dioxide 19 BUN 10 Creatinine 0.70 Glucose 98 Calcium 9.2 - ABG Interpretation ABG results: PT/INR, D-dimer PT 12.0 Seconds (9.4-12.1) 05/03/17 18:57 - Impressions Impressions Brain MRI 05/04/17 23:41 IMPRESSION: No evidence of acute intracranial abnormality. Mild chronic small vessel ischemic disease within the periventricular white matter. Mild atrophy. D/ /04/2017 14:25:20 Jerson Wright MD / [facility] Interpreting Provider: Jerson Wright MD Consult Discharge Plan - Plan Referrals: Tawana Downs MD [Primary Care Provider] -
[2017-05-06] MEDS: *HR* LORazepam 0.5 MG TABLET PO PRN (02:35)
[2017-05-06 05:44] LABS: Basophils % 0.4 %; Eosinophils # 0.1 K/mcL (0.0-0.6); Eosinophils % 1.7 %; Hematocrit 35.8 % (35.3-44.9); Hemoglobin 11.8 g/dL (11.5-15.4); Immature Granulocytes % 0.4 % (0-4); Mean Corpuscular Hemoglobin 28.2 pg (28.0-33.3); Mean Corpuscular Volume 85.6 fL (83.0-100.0); Mean Platelet Volume 10.4 fL (9.4-12.4); Monocytes % 12.6 %; Neutrophils # 4.5 K/mcL (1.6-8.9); Platelet Count 233 K/mcL (140-400); Red Blood Count 4.18 M/mcL (3.82-4.97); Red Cell Distribution Width 14.5 % (11.5-14.5); Segmented Neutrophils % 58.9 %
[2017-05-06] MEDS: *HR* Heparin 5,000 UNIT/ML VIAL SQ SCH ×2 (05:56→17:58)
[2017-05-06 06:08] LABS: BUN/Creatinine Ratio 16 (6-26); Blood Urea Nitrogen 12 mg/dL (7-20); Calcium 8.8 mg/dL (8.6-10.8); Carbon Dioxide 23 mEq/L (19-29); Chloride 105 mEq/L (98-109); Creatine Kinase 141 Units/L (29-168); Glucose 90 mg/dL (70-99); Osmolality,Calculated 287 (280-300); Potassium 3.4 mEq/L (3.5-4.5); Sodium 139 mEq/L (136-145); eGFR For African Americans > 60 (> 60); eGFR For Non-African Americans > 60 (> 60)
[2017-05-06] MEDS: clonazePAM 0.5 MG TABLET PO SCH ×2 (08:31→21:11)
--- NOTE | 2017-05-06 17:58 | Internal Med Progress Note ---
Date of Encounter: 05/06/17 Time of Encounter: 08:45 - Assessment and plan (1) Acute encephalopathy Current Visit: Yes Status: Resolved Assessment and plan: Resolved. Patient has returned to baseline. Could have been metabolic due to hypoglycemia. No history of diabetes, blood sugars currently normal. A1c 5.0%. Currently at baseline mental status. CT head showed no acute abnormality. MRI brain showed no acute intracranial abnormality, mild chronic small vessel ischemic disease, mild atrophy . Patient was seen by neurology and and EEG was ordered that was within normal limits. No evidence of epileptiform activity. Vital signs are stable, labs have all returned within normal limits. Unclear etiology other than possible hypoglycemia or medication changes. Patient has returned to baseline. Chest X-Ray 05/03/17 18:41 IMPRESSION: No acute process. D/ / Sung Martins MD / Sung Martins MD Interpreting Provider: Sung Martins MD Head CT 05/03/17 18:41 IMPRESSION: Exam mildly limited by patient motion artifact. No acute intracranial abnormality identified. D/ / Sung Martins MD / Sung Martins MD Interpreting Provider: Sung Martins MD Brain MRI 05/04/17 23:41 IMPRESSION: No evidence of acute intracranial abnormality. Mild chronic small vessel ischemic disease within the periventricular white matter. Mild atrophy. D/ / 05/04/2017 14:25:20 Jerson Wright MD / [facility] Interpreting Provider: Jerson Wright MD (2) Elevated CK Current Visit: Yes Status: Resolved Assessment and plan: Improving creatinine kinase, likely related to recent weakness and lying in bed for prolonged time. Returned to WNL. REsolved. (3) Accelerated hypertension Current Visit: Yes Status: Acute Assessment and plan: Patient does not appear to take any medication for hypertension at home. She has been mildly hypertensive, slightly above goal since she has been admitted. She has hydralazine when necessary. Will add low dose of hydrochlorothiazide and monitor for effectiveness. (4) Extrapyramidal and movement disorder, unspecified Current Visit: Yes Status: Resolved (5) Leukocytosis Current Visit: Yes Status: Resolved Qualifiers: Leukocytosis type: unspecified Qualified Code(s): D72.829 - Elevated white blood cell count, unspecified (6) Hypokalemia Current Visit: Yes Status: Resolved Assessment and plan: K= 3.4 today, will recheck in the morning after supplementation today. - Time Spent With Patient less than 15 minutes - Subjective Interval history: Patient was seen and assessed at 0845. Pt states that she feels better today and wants to go to [facility] for [facility]. SS is on board. She denies HART, n/v/d, abd pain, dizziness. She denies chest pain or SOB. - Constitutional Vitals: Temp Pulse Resp BP Pulse Ox 98.3 F 97 16 154/81 95 05/06/17 16:41 05/06/17 16:41 05/06/17 16:41 05/06/17 16:41 05/06/17 16:41 General appearance: Present: cooperative, A&O X 3, pleasant, no acute distress, answers questions appropriately - Head Head exam: Present: atraumatic, normal inspection, normocephalic - Eye Eye exam: Present: normal appearance, conjuntiva pink, sclera anicteric - Neck Neck exam general surgery: Present: tenderness, supple, trachea midline. Absent : lymphadenopathy - Respiratory Respiratory exam: Present: CTAB. Absent: accessory muscle use, chest wall tenderness, rales, respiratory distress, rhonchi, wheezes - Cardiovascular Cardiovascular exam: Present: RRR, +S1, +S2. Absent: diastolic murmur, gallop, rubs, systolic murmur - GI/Abdominal GI/Abdominal exam: Present: normal bowel sounds, soft. Absent: distended, hepatomegaly, tenderness - Extremities Exam Extremities exam: Present: warm, radial pulses palpable and symmetrical. Absent : calf tenderness, cyanotic, pedal edema - Neurological Exam Neurological exam: Present: alert, oriented X3, no focal deficits. Absent: altered, facial droop, speech deficit - Skin Skin exam: Present: dry, intact, normal color, warm. Absent: rash Internal Medicine: Result - Labs CBC & Chem 7: 05/06/17 05:13 05/06/17 05:13 Labs: Short CBC 05/06/17 Range/Units 05:13 WBC 7.6 (4.3-11.1) K/mcL Hgb 11.8 (11.5-15.4) g/dL Hct 35.8 (35.3-44.9) % Plt Count 233 (140-400) K/mcL Neutrophils # 4.5 (1.6-8.9) K/mcL BMP 05/06/17 05:13 Sodium 139 Potassium 3.4 L Chloride 105 Carbon Dioxide 23 BUN 12 Creatinine 0.76 Glucose 90 Calcium 8.8 - ABG Interpretation ABG results: PT/INR, D-dimer PT 12.0 Seconds (9.4-12.1) 05/03/17 18:57 Consult Discharge Plan - Plan Referrals: Tawana Downs MD [Primary Care Provider] -
[2017-05-06] MEDS ORDERED: hydroCHLOROthiazide 25 MG TABLET PO SCH (18:30)
[2017-05-06] MEDS: hydroCHLOROthiazide 25 MG TABLET PO SCH (21:10)
[2017-05-07] MEDS: *HR* LORazepam 0.5 MG TABLET PO PRN (02:05)
[2017-05-07] MEDS: *HR* Heparin 5,000 UNIT/ML VIAL SQ SCH ×2 (06:17→17:24)
[2017-05-07] MEDS: clonazePAM 0.5 MG TABLET PO SCH ×2 (08:51→22:37)
[2017-05-07] MEDS: hydroCHLOROthiazide 25 MG TABLET PO SCH ×2 (08:51→20:57)
[2017-05-07] MEDS: Ondansetron 4 MG/2 ML VIAL IVP PRN (08:51)
--- NOTE | 2017-05-07 10:28 | Internal Med Progress Note ---
Date of Encounter: 05/07/17 Time of Encounter: 10:00 - Assessment and plan (1) Acute encephalopathy Current Visit: Yes Status: Resolved Assessment and plan: Resolved. Patient has returned to baseline. Could have been metabolic due to hypoglycemia. No history of diabetes, blood sugars currently normal. A1c 5.0%. Currently at baseline mental status. CT head showed no acute abnormality. MRI brain showed no acute intracranial abnormality, mild chronic small vessel ischemic disease, mild atrophy . Patient was seen by neurology and and EEG was ordered that was within normal limits. No evidence of epileptiform activity. Vital signs are stable, labs have all returned within normal limits. Unclear etiology other than possible hypoglycemia or medication changes. Patient has returned to baseline. Pt had some transiet confusion this a.m. States that she thought she was to go on a car ride with a friend to a construction site. Upon my exam, pt was back to baseline. We have collected a urine to look for UTI. Chest X-Ray 05/03/17 18:41 IMPRESSION: No acute process. D/ / Sung Martins MD / Sung Martins MD Interpreting Provider: Sung Martins MD Head CT 05/03/17 18:41 IMPRESSION: Exam mildly limited by patient motion artifact. No acute intracranial abnormality identified. D/ / Sung Martins MD / Sung Martins MD Interpreting Provider: Sung Martins MD Brain MRI 05/04/17 23:41 IMPRESSION: No evidence of acute intracranial abnormality. Mild chronic small vessel ischemic disease within the periventricular white matter. Mild atrophy. D/ / 05/04/2017 14:25:20 Jerson Wright MD / yoselin Interpreting Provider: Jerson Wright MD (2) Accelerated hypertension Current Visit: Yes Status: Acute Assessment and plan: Blood pressure is well controlled. Continue home medication. Continue to monitor vital signs per admission order. (3) Physical deconditioning Current Visit: Yes Status: Acute Assessment and plan: Pt appears to be weak and requires assistance to sit up in bed. She has been evaluated by PT/OT and will be placed in SNF for rehab at [facility] when she is accepted. Continue PT/OT Fall precautions Bed alarm Up to chair (4) DVT prophylaxis Current Visit: No Status: Acute Assessment and plan: Pt has been on Heparin SQ since admission. Up to chair. - Time Spent With Patient less than 15 minutes - Subjective Interval history: Patient was seen and assessed at 1000. She states that she feels well. She admits to having some confusion this a.m., but has returned to her baseline. She denies SOB, n/v/d, chest pain, abdominal pain, or dizziness. She states that previously she had similar episode of confusion and had a UTI. - Constitutional Vitals: Temp Pulse Resp BP Pulse Ox 98.0 F 104 16 138/71 96 05/07/17 07:19 05/07/17 07:19 05/07/17 07:19 05/07/17 07:19 05/07/17 07:19 General appearance: Present: cooperative, A&O X 3, pleasant, no acute distress, answers questions appropriately - Head Head exam: Present: atraumatic, normal inspection, normocephalic - Eye Eye exam: Present: normal appearance, PERRL, conjuntiva pink, sclera anicteric Pupils: Present: PERRL - Neck Neck exam general surgery: Present: supple, trachea midline - Respiratory Respiratory exam: Present: CTAB. Absent: accessory muscle use, chest wall tenderness, decreased breath sounds, rales, respiratory distress, rhonchi, wheezes - Cardiovascular Cardiovascular exam: Present: RRR, +S1, +S2. Absent: diastolic murmur, gallop, rubs, systolic murmur - GI/Abdominal GI/Abdominal exam: Present: normal bowel sounds, soft, no peritoneal signs. Absent: distended, hepatomegaly, tenderness - Extremities Exam Extremities exam: Present: normal capillary refill, normal inspection, warm, radial pulses palpable and symmetrical. Absent: calf tenderness, cyanotic, pedal edema, tenderness - Neurological Exam Neurological exam: Present: alert, normal gait, oriented X3, no focal deficits, strengths equal and symetr throughout. Absent: motor sensory deficit, facial droop, speech deficit - Skin Skin exam: Present: dry, intact, normal color, warm. Absent: rash Internal Medicine: Result - Labs CBC & Chem 7: 05/06/17 05:13 05/06/17 05:13 - ABG Interpretation ABG results: PT/INR, D-dimer PT 12.0 Seconds (9.4-12.1) 05/03/17 18:57 Consult Discharge Plan - Plan Referrals: Tawana Downs MD [Primary Care Provider] -
[2017-05-07 11:02] LABS: Bilirubin,Urine Negative (Negative); Blood,Urine Negative (Negative); Clarity,Urine Clear (Clear); Color,Urine Yellow (Yellow); Glucose,Urine (UA) Normal (Normal); Ketones,Urine Negative (Negative); Leukocyte Esterase,Urine Moderate (Negative); Nitrite,Urine Negative (Negative); PH,Urine 6.5 pH Units (5.0-8.0); Protein,Urine Negative (Neg-Trace); Specific Gravity,Urine 1.012 (1.010-1.025); Urobilinogen,Urine Normal (Normal)
[2017-05-07 11:07] LABS: Bacteria,Urine None Seen per hpf (None-Few); Hyaline Casts,Urine None Seen per lpf (None-Few); RBC,Urine 0-3 per hpf (0-3); Squamous Epithelial Cell,Urine Moderate per lpf (None-Few)
[2017-05-08] MEDS: *HR* LORazepam 0.5 MG TABLET PO PRN ×3 (02:04→20:42)
[2017-05-08 05:53] LABS: Basophils % 0.2 %; Eosinophils # 0.1 K/mcL (0.0-0.6); Eosinophils % 1.7 %; Hematocrit 37.3 % (35.3-44.9); Hemoglobin 12.3 g/dL (11.5-15.4); Immature Granulocytes % 0.2 % (0-4); Lymphocytes # 1.9 K/mcL (0.6-4.6); Lymphocytes % 22.9 %; Mean Corpuscular Hemoglobin 27.9 pg (28.0-33.3); Mean Corpuscular Volume 84.6 fL (83.0-100.0); Mean Platelet Volume 10.5 fL (9.4-12.4); Monocytes # 1.2 K/mcL (0.0-1.3); Monocytes % 15.2 %; Neutrophils # 4.9 K/mcL (1.6-8.9); Platelet Count 279 K/mcL (140-400); Red Blood Count 4.41 M/mcL (3.82-4.97); Red Cell Distribution Width 14.4 % (11.5-14.5); Segmented Neutrophils % 59.8 %
[2017-05-08 06:24] LABS: BUN/Creatinine Ratio 18 (6-26); Blood Urea Nitrogen 14 mg/dL (7-20); Calcium 9.1 mg/dL (8.6-10.8); Carbon Dioxide 24 mEq/L (19-29); Chloride 99 mEq/L (98-109); Glucose 105 mg/dL (70-99); Osmolality,Calculated 277 (280-300); Potassium 3.3 mEq/L (3.5-4.5); Sodium 133 mEq/L (136-145); eGFR For African Americans > 60 (> 60); eGFR For Non-African Americans > 60 (> 60)
[2017-05-08] MEDS: *HR* Heparin 5,000 UNIT/ML VIAL SQ SCH ×2 (06:29→16:53)
[2017-05-08] MEDS: hydroCHLOROthiazide 25 MG TABLET PO SCH ×2 (08:40→20:40)
[2017-05-08] MEDS: clonazePAM 0.5 MG TABLET PO SCH (08:40)
--- NOTE | 2017-05-08 14:11 | Internal Med Progress Note ---
Date of Encounter: 05/08/17 Time of Encounter: 10:30 - Assessment and plan (1) Accelerated hypertension Current Visit: Yes Status: Acute Assessment and plan: Blood pressure is well controlled. Continue home medication. Continue to monitor vital signs per admission order. I have added lisinopril for better management. Continue to monitor, adjust as needed. (2) Physical deconditioning Current Visit: Yes Status: Acute Assessment and plan: Pt appears to be weak and requires assistance to sit up in bed. Her gait appears to be steady, though she does require assistance. She has been evaluated by PT/OT and will be placed in SNF for rehab at [facility] when she is accepted. Continue PT/OT Fall precautions Bed alarm Up to chair (3) DVT prophylaxis Current Visit: No Status: Acute Assessment and plan: Pt has been on Heparin SQ since admission. Up to chair. - Time Spent With Patient less than 15 minutes - Subjective Interval history: Patient was seen and assessed at 1030. Patient was alert and awake, I assisted her to the bathroom. Her gait is steady although she requires assistance. She denies headache, blurred vision, nausea, vomiting, diaphoresis, shortness of breath, abdominal pain. Patient is oriented to month, day, year, and who the president is. She states that she is in the [place] alf at this time. She is easily reoriented and remembers that she is at the hospital. - Constitutional Vitals: Temp Pulse Resp BP Pulse Ox 97.9 F 114 16 165/92 99 05/08/17 11:11 05/08/17 12:24 05/08/17 11:11 05/08/17 12:24 05/08/17 11:11 General appearance: Present: cooperative, A&O X 3, pleasant, no acute distress, answers questions appropriately - Head Head exam: Present: atraumatic, normal inspection, normocephalic - Eye Eye exam: Present: normal appearance, conjuntiva pink, sclera anicteric - Neck Neck exam general surgery: Present: supple, trachea midline. Absent: lymphadenopathy - Respiratory Respiratory exam: Present: CTAB. Absent: accessory muscle use, rales, rhonchi, wheezes - Cardiovascular Cardiovascular exam: Present: RRR, +S1, +S2. Absent: diastolic murmur, gallop, rubs, systolic murmur - GI/Abdominal GI/Abdominal exam: Present: normal bowel sounds, soft. Absent: distended, hepatomegaly, tenderness - Extremities Exam Extremities exam: Present: warm, radial pulses palpable and symmetrical. Absent : calf tenderness, cyanotic, pedal edema - Neurological Exam Neurological exam: Present: alert, oriented X3, no focal deficits. Absent: facial droop, speech deficit - Skin Skin exam: Present: dry, intact, normal color, warm. Absent: rash Internal Medicine: Result - Labs CBC & Chem 7: 05/08/17 05:03 05/08/17 05:03 Labs: Short CBC 05/08/17 Range/Units 05:03 WBC 8.2 (4.3-11.1) K/mcL Hgb 12.3 (11.5-15.4) g/dL Hct 37.3 (35.3-44.9) % Plt Count 279 (140-400) K/mcL Neutrophils # 4.9 (1.6-8.9) K/mcL BMP 05/08/17 05:03 Sodium 133 L Potassium 3.3 L Chloride 99 Carbon Dioxide 24 BUN 14 Creatinine 0.79 Glucose 105 H Calcium 9.1 - ABG Interpretation ABG results: PT/INR, D-dimer PT 12.0 Seconds (9.4-12.1) 05/03/17 18:57 Consult Discharge Plan - Plan Referrals: Tawana Downs MD [Primary Care Provider] -
[2017-05-08] MEDS: Melatonin 3 MG TABLET PO SCH (21:29)
[2017-05-09 04:32] LABS: BUN/Creatinine Ratio 23 (6-26); Blood Urea Nitrogen 18 mg/dL (7-20); Calcium 9.1 mg/dL (8.6-10.8); Carbon Dioxide 23 mEq/L (19-29); Chloride 99 mEq/L (98-109); Glucose 115 mg/dL (70-99); Osmolality,Calculated 279 (280-300); Potassium 3.4 mEq/L (3.5-4.5); Sodium 133 mEq/L (136-145); eGFR For African Americans > 60 (> 60); eGFR For Non-African Americans > 60 (> 60)
[2017-05-09 04:51] LABS: Basophils % 0.4 %; Eosinophils # 0.1 K/mcL (0.0-0.6); Eosinophils % 1.5 %; Hematocrit 37.5 % (35.3-44.9); Hemoglobin 12.2 g/dL (11.5-15.4); Immature Granulocytes % 0.4 % (0-4); Lymphocytes # 1.9 K/mcL (0.6-4.6); Lymphocytes % 23.2 %; Mean Corpuscular HGB Conc 32.5 g/dL (31.6-35.5); Mean Corpuscular Hemoglobin 27.6 pg (28.0-33.3); Mean Corpuscular Volume 84.8 fL (83.0-100.0); Mean Platelet Volume 10.6 fL (9.4-12.4); Monocytes # 1.1 K/mcL (0.0-1.3); Monocytes % 13.9 %; Neutrophils # 4.9 K/mcL (1.6-8.9); Platelet Count 313 K/mcL (140-400); Red Blood Count 4.42 M/mcL (3.82-4.97); Red Cell Distribution Width 14.2 % (11.5-14.5); Segmented Neutrophils % 60.6 %
[2017-05-09] MEDS: *HR* Heparin 5,000 UNIT/ML VIAL SQ SCH ×2 (05:25→16:59)
[2017-05-09] MEDS: hydroCHLOROthiazide 25 MG TABLET PO SCH ×2 (08:32→20:56)
--- NOTE | 2017-05-09 10:00 | Internal Med Progress Note ---
Date of Encounter: 05/09/17 Time of Encounter: 08:15 - Assessment and plan (1) Confusion Current Visit: Yes Status: Acute Assessment and plan: Pt was alert and oriented yesterday morning, she was able to answer questions. Primary nurse reported that patient was confused later that day. A urine was ordered which was negative. Discussed patient with family members at bedside last night, they state that she is not at her baseline despite being able to answer questions appropriately and holding appropriate conversations. I discussed this with patient and family for a little bit longer and patient eventually stated that she had seen someone with her head stuck in the sharps container and they were dangling out of the sharps container. We ordered a chest CT to assess for possible early pneumonia, it was negative. Head CT was also negative. I ordered melatonin 3 mg at bedtime since I suspected some delirium. Patient slept well overnight and is back at her baseline. She is alert and oriented caries on appropriate conversations. She knows where she is , yesterday she was unaware where she was. We will continue the melatonin and continue to monitor patient's condition. (2) Accelerated hypertension Current Visit: Yes Status: Acute Assessment and plan: Blood pressure is well controlled. Continue home medication. Continue to monitor vital signs per admission order. I have added lisinopril for better management. Blood pressure is closer to goal. Continue to monitor, adjust as needed. (3) Physical deconditioning Current Visit: Yes Status: Acute Assessment and plan: Pt appears to be weak and requires assistance to sit up in bed. Her gait appears to be steady, though she does require assistance. She has been evaluated by PT/OT and will be placed in SNF for rehab at [facility] per their recommendation. Pt is still waiting on placement and probably will not be accepted until 05/11. Pt is aware. Continue PT/OT Fall precautions Bed alarm Up to chair (4) DVT prophylaxis Current Visit: No Status: Acute Assessment and plan: Pt has been on Heparin SQ since admission. Up to chair. - Time Spent With Patient less than 15 minutes - Subjective Interval history: Patient was seen and assessed at 0815. Patient was alert and awake, oriented today. Pt had confusion last night that was uncharacteristic for her, family was at bedside and verbalized concern for infection. Chest xray and head CT ordered, both negative. Pt was given Melatonin for sleep and feels much better this a.m and is no longer confused. She denies chest pain, HART, n/v/d, abdominal pain, dizziness, or any other complaints. She is aware that she is still waiting on placement at [facility] and will most likely be here until Thursday. - Constitutional Vitals: Temp Pulse Resp BP Pulse Ox 97.4 F L 81 16 159/89 98 05/09/17 07:23 05/09/17 07:23 05/09/17 07:23 05/09/17 07:23 05/09/17 08:38 General appearance: Present: cooperative, A&O X 3, pleasant, no acute distress, answers questions appropriately - Head Head exam: Present: atraumatic, normal inspection, normocephalic - Eye Eye exam: Present: normal appearance, conjuntiva pink, sclera anicteric - Neck Neck exam general surgery: Present: supple, trachea midline. Absent: lymphadenopathy - Respiratory Respiratory exam: Present: CTAB. Absent: accessory muscle use, chest wall tenderness, decreased breath sounds, rales, respiratory distress, rhonchi, wheezes - Cardiovascular Cardiovascular exam: Present: RRR, +S1, +S2. Absent: diastolic murmur, gallop, rubs, systolic murmur - GI/Abdominal GI/Abdominal exam: Present: normal bowel sounds, soft. Absent: distended, hepatomegaly, tenderness - Extremities Exam Extremities exam: Present: normal capillary refill, warm, radial pulses palpable and symmetrical. Absent: calf tenderness, cyanotic, pedal edema - Neurological Exam Neurological exam: Present: alert, oriented X3, no focal deficits. Absent: altered, facial droop, speech deficit - Skin Skin exam: Present: dry, intact, normal color, warm. Absent: rash Internal Medicine: Result - Labs CBC & Chem 7: 05/09/17 03:57 05/09/17 03:57 Labs: Short CBC 05/09/17 Range/Units 03:57 WBC 8.1 (4.3-11.1) K/mcL Hgb 12.2 (11.5-15.4) g/dL Hct 37.5 (35.3-44.9) % Plt Count 313 (140-400) K/mcL Neutrophils # 4.9 (1.6-8.9) K/mcL BMP 05/09/17 03:57 Sodium 133 L Potassium 3.4 L Chloride 99 Carbon Dioxide 23 BUN 18 Creatinine 0.80 Glucose 115 H Calcium 9.1 - ABG Interpretation ABG results: PT/INR, D-dimer PT 12.0 Seconds (9.4-12.1) 05/03/17 18:57 - Impressions Impressions Chest X-Ray 05/08/17 18:08 IMPRESSION: No acute abnormality detected. D/ / Dwight Flores MD / Dwight Flores MD Interpreting Provider: Dwight Flores MD Head CT 05/08/17 19:23 IMPRESSION: No acute intracranial abnormality. D/ / Dwight Flores MD / Dwight Flores MD Interpreting Provider: Dwight Flores MD Consult Discharge Plan - Plan Referrals: Tawana Downs MD [Primary Care Provider] -
[2017-05-09] MEDS: Melatonin 3 MG TABLET PO SCH (20:56)
[2017-05-09] MEDS: *HR* LORazepam 0.5 MG TABLET PO PRN (23:49)
[2017-05-09] MEDS: Acetaminophen 325 MG TABLET PO PRN (23:54)
[2017-05-10] MEDS: *HR* Heparin 5,000 UNIT/ML VIAL SQ SCH ×2 (06:20→18:04)
[2017-05-10] MEDS: hydroCHLOROthiazide 25 MG TABLET PO SCH ×2 (08:56→19:56)
--- NOTE | 2017-05-10 16:36 | Internal Med Progress Note ---
Date of Encounter: 05/10/17 Time of Encounter: 16:15 - Assessment and plan (1) Confusion Current Visit: Yes Status: Acute Assessment and plan: Pt was alert and oriented, she was able to answer questions. Primary nurse reported that patient was confused later that day. A urine was ordered which was negative. Discussed patient with family members at bedside last night, they state that she is not at her baseline despite being able to answer questions appropriately and holding appropriate conversations. I discussed this with patient and family for a little bit longer and patient eventually stated that she had seen someone with her head stuck in the sharps container and they were dangling out of the sharps container. We ordered a chest CT to assess for possible early pneumonia, it was negative. Head CT was also negative. I ordered melatonin 3 mg at bedtime since I suspected some delirium. Patient slept well overnight and is back at her baseline. She is alert and oriented caries on appropriate conversations. She knows where she is, yesterday she was unaware where she was. We will continue the melatonin and continue to monitor patient's condition. (2) Accelerated hypertension Current Visit: Yes Status: Acute Assessment and plan: Blood pressure is well controlled. Continue home medication. Continue to monitor vital signs per admission order. I have added lisinopril and increased it to 10mg po daily for better management. Blood pressure is closer to goal. Continue to monitor, adjust as needed. (3) Physical deconditioning Current Visit: Yes Status: Acute Assessment and plan: Pt appears to be weak and requires assistance to sit up in bed. Her gait appears to be steady, though she does require assistance. She has been evaluated by PT/OT and will be placed in SNF for rehab at [facility] per their recommendation. Pt is still waiting on placement and probably will not be accepted until tomorrow. Pt is aware. Continue PT/OT Fall precautions Bed alarm Up to chair (4) DVT prophylaxis Current Visit: No Status: Acute Assessment and plan: Pt has been on Heparin SQ since admission. Up to chair. - Time Spent With Patient less than 15 minutes - Subjective Interval history: Patient was seen and assessed at 1615. Patient was alert and awake, oriented today. She denies chest pain, HART, n/v/d, abdominal pain, dizziness, SOB. She is aware that she is still waiting on placement at [facility] and will most likely be here until Thursday. - Constitutional Vitals: Temp Pulse Resp BP Pulse Ox 98.0 F 94 16 154/91 90 05/10/17 15:00 05/10/17 15:00 05/10/17 15:00 05/10/17 15:00 05/10/17 15:00 General appearance: Present: cooperative, A&O X 3, pleasant, no acute distress, answers questions appropriately - Head Head exam: Present: atraumatic, normal inspection, normocephalic - Eye Eye exam: Present: normal appearance, conjuntiva pink, sclera anicteric - Neck Neck exam general surgery: Present: supple, trachea midline. Absent: lymphadenopathy, tenderness - Respiratory Respiratory exam: Present: CTAB. Absent: accessory muscle use, chest wall tenderness, decreased breath sounds, rales, respiratory distress, rhonchi, wheezes - Cardiovascular Cardiovascular exam: Present: RRR, +S1, +S2. Absent: diastolic murmur, gallop, rubs, systolic murmur - GI/Abdominal GI/Abdominal exam: Present: hepatomegaly, normal bowel sounds, soft, no peritoneal signs. Absent: distended, tenderness - Extremities Exam Extremities exam: Present: normal capillary refill, normal inspection, warm, radial pulses palpable and symmetrical. Absent: calf tenderness, cyanotic, pedal edema, tenderness - Neurological Exam Neurological exam: Present: alert, oriented X3, no focal deficits, strengths equal and symetr throughout. Absent: altered, motor sensory deficit, facial droop, speech deficit - Skin Skin exam: Present: dry, intact, normal color, warm. Absent: rash Internal Medicine: Result - Labs CBC & Chem 7: 05/09/17 03:57 05/09/17 03:57 - ABG Interpretation ABG results: PT/INR, D-dimer PT 12.0 Seconds (9.4-12.1) 05/03/17 18:57 Consult Discharge Plan - Plan Referrals: Tawana Downs MD [Primary Care Provider] -
[2017-05-10] MEDS: Melatonin 3 MG TABLET PO SCH (19:55)
[2017-05-10] MEDS: Acetaminophen 325 MG TABLET PO PRN (23:39)
[2017-05-11] MEDS: Acetaminophen 325 MG TABLET PO PRN (06:01)
[2017-05-11] MEDS: *HR* Heparin 5,000 UNIT/ML VIAL SQ SCH (06:01)
[2017-05-11] MEDS: hydroCHLOROthiazide 25 MG TABLET PO SCH (08:59)
--- NOTE | 2017-05-11 13:08 | Discharge Summary ---
Date of Encounter: 05/11/17 Time of Encounter: 10:15 - Discharge Diagnosis (1) Confusion Priority: Primary Status: Acute Comments: Pt had episode of confusion that has since resolved. A urine was ordered which was negative. Discussed patient with family members at bedside at the time of the incident, they state that she is not at her baseline despite being able to answer questions appropriately and holding appropriate conversations. I discussed this with patient and family for a little bit longer and patient eventually stated that she had seen someone with her head stuck in the sharps container and they were dangling out of the sharps container. We ordered a chest CT to assess for possible early pneumonia, it was negative. Head CT was also negative. I ordered melatonin 3 mg at bedtime since I suspected some delirium. Patient slept well overnight and is back at her baseline. She is alert and oriented caries on appropriate conversations. She knows where she is , yesterday she was unaware where she was. Patient seemed to have had some hospital-induced delirium and has since recovered. Recommend continuing the melatonin after discharge. (2) Accelerated hypertension Priority: Secondary Status: Acute Comments: Blood pressures been well controlled since admission. Patient will continue her home medications. Since the course of her stay, I have added lisinopril 10 mg daily for better management. Blood pressure is well below goal. Frequent blood pressure monitoring after discharge encouraged in case there are any medication changes necessary. (3) Physical deconditioning Priority: Secondary Status: Acute Comments: Pt appears to be weak and requires assistance to sit up in bed. Her gait appears to be steady, though she does require assistance. She has been evaluated by PT/OT and will be placed in SNF for rehab at [facility] per their recommendation. Pt has been waiting for several days on placement, she is accepted today. Pt is aware. Continue PT/OT to discharge Fall precautions (4) DVT prophylaxis Priority: Secondary Status: Acute Comments: Patient has been up to chair several times daily, heparin subcutaneous daily. - Discharge Medications Home Medications: Acetaminophen [Tylenol] 650 mg PO BID PRN 07/30/15 [History] Cholecalciferol (Vitamin D3) [Vitamin D3] 400 unit PO DAILY 07/30/15 [History] Diclofenac Sodium [Voltaren] 75 mg PO BID 07/30/15 [History] Magnesium Oxide [Magnesium] 400 mg PO DAILY 07/30/15 [History] Multivitamin/Iron/Folic Acid [Centrum Complete Multivit Tab] 1 each PO DAILY 07/14 [History] Omeprazole [PriLOSEC] 20 mg PO BID 07/30/15 [History] Qjlstzj-Yccdagvkr-Itub Tablet 1 tab PO DAILY 11/08/15 [History] Baclofen 20 mg PO TID 05/04/17 [History] Fluticasone Propionate Nasal [Flonase] 2 spr NS DAILY 05/04/17 [History] Sertraline [Zoloft] 100 mg PO DAILY 05/04/17 [History] Lisinopril [Zestril] 10 mg PO DAILY tablet 05/11/17 [Rx] Melatonin 3 mg PO HS tablet 05/11/17 [Rx] Metoprolol [Lopressor] 12.5 mg PO BID tablet 05/11/17 [Rx] Omeprazole [PriLOSEC] 20 mg PO DAILY@0630 capsule. 05/11/17 [Rx] hydroCHLOROthiazide [Hydrochlorothiazide] 12.5 mg PO BID #0 tablet 05/11/17 [Rx] Allergies/Adverse Reactions: 3 Allergy/AdvReac Type Severity Reaction Status Date / Time celecoxib [From Celebrex] Allergy Intermediate Rash Verified 05/15/16 14:37 codeine AdvReac Severe Confusion Verified 05/15/16 14:37 meperidine [From Demerol] AdvReac Severe Nausea Verified 05/15/16 14:37 gabapentin AdvReac Intermediate Confusion Verified 05/15/16 14:37 Procedures/tests Complete & Pending: Procedures Performed prior 72 hours Category Date Time Status CT head/brain wo con [CT] Routine Cat Scan 05/08/17 19:23 Completed Date of admission: 05/03/17 20:53 Primary care physician: Tawana Coates Consults: 05/03/17 23:44 Consult to Neurology [CONS] Routine Consulting Provider: Neurology [facility] Reason for Consult: Extrapyramimidal symptoms Call Completed: No 05/04/17 11:43 Consult to Occupational Therapy [CONS] Routine Comment: Evaluate, develop and implement POC Reason for Consult: Weakness, involuntary movements Consult to Physical Therapy [CONS] Routine Comment: Evaluate, develop and implement POC Reason for Consult: Weakness, involuntary movements 05/04/17 16:20 Consult to Interpret Exam [CONS] Routine Consulting Provider: Bennie Shepherd Consult to Interpret Exam: Interpret EEG 05/06/17 10:30 Consult to Check Weigher [CONS] Routine Reason for SW Consult: discharge planning. PT recommends SNF for rehab, pt would like to go to [place] for rehab. Discharging clinician: Juju Carrizales Anticipated date of discharge: 05/11/17 - Patient Status Disposition: Home, Self-Care Condition: Good Functional capacity at discharge: independent ambulation Overall status at discharge: patient is progressing back to baseline - Discharge Instructions Follow Up With: Tawana Downs MD [Primary Care Provider] - - Diet and Activity Activity: ambulate only with your walker, as per physical therapy Diet: advance to your usual diet Hospital course: Ms. Mariee is a 81 year old female with past medical history of radial head fracture, altered mental status, heard, hyperlipidemia, sarcoma left upper extremity. She presented to the CT room complaining of confusion. She is in assisted living and did not meet her friend for dinner, which was odd. Patient was found in her room to be confused. She was found be hypoglycemic at that time was given an amp of D50 and was having abnormal movements and shoulders and upper and lower extremities. At the time it was thought that she had some extrapyramidal movements from Risperdal, however she had never been taking the Risperdal. She is placed on Klonopin which was later discontinued. Confusion resolved, patient was okay for several days. She was found to be weak and physical therapy recommended inpatient rehabilitation. Patient was here for several more days waiting on approval. This time, she was again found to be confused. Head CT was negative urine was negative, chest x-ray was negative. Labs all remained within normal limits. Her vital signs were stable. She was given some melatonin to assist with sleep since she had not been sleeping regularly. This appeared to be beneficial and she returned to her baseline medic's morning. Since that time she has been stable, alert and oriented. She has been approved for rehabilitation and is stable and ready for discharge. - Time Spent with Patient Total time spent providing and/or coordinating discharge services: Less than 30 minutes - Constitutional Vitals: Temp Pulse Resp BP Pulse Ox 97.9 F 77 14 119/70 96 05/11/17 10:51 05/11/17 10:51 05/11/17 10:51 05/11/17 10:51 05/11/17 10:51 General appearance: Present: cooperative, A&O X 3, pleasant, no acute distress, answers questions appropriately - Head Head exam: Present: atraumatic, normal inspection, normocephalic - Eye Eye exam: Present: normal appearance, conjuntiva pink, sclera anicteric - Neck Neck exam general surgery: Present: supple, trachea midline - Respiratory Respiratory exam: Present: CTAB. Absent: accessory muscle use, rales, rhonchi, wheezes - Cardiovascular Cardiovascular exam: Present: RRR, +S1, +S2. Absent: diastolic murmur, gallop, rubs, systolic murmur - GI/Abdominal GI/Abdominal exam: Present: normal bowel sounds, soft. Absent: distended, hepatomegaly, tenderness - Extremities Exam Extremities exam: Present: normal capillary refill, normal inspection, warm, radial pulses palpable and symmetrical. Absent: calf tenderness, cyanotic, pedal edema, tenderness - Neurological Exam Neurological exam: Present: alert, oriented X3, no focal deficits. Absent: facial droop, speech deficit - Skin Skin exam: Present: dry, intact, normal color, warm. Absent: rash
--- NOTE | 2017-05-11 13:30 | Physician Discharge Referral ---
[facility] Referral Info Provider in Charge after Transfer: PCP Institutional Level of Care: Intermediate - Diagnosis (1) Confusion Priority: Primary Status: Acute (2) Accelerated hypertension Priority: Secondary Status: Acute (3) Physical deconditioning Priority: Secondary Status: Acute (4) DVT prophylaxis Priority: Secondary Status: Acute Prognosis: Good Aware of Diagnosis: Patient, Family Aware of Prognosis: Patient, Family - Transfer Medications Home Medications: Acetaminophen [Tylenol] 650 mg PO BID PRN 07/30/15 [History] Cholecalciferol (Vitamin D3) [Vitamin D3] 400 unit PO DAILY 07/30/15 [History] Diclofenac Sodium [Voltaren] 75 mg PO BID 07/30/15 [History] Magnesium Oxide [Magnesium] 400 mg PO DAILY 07/30/15 [History] Multivitamin/Iron/Folic Acid [Centrum Complete Multivit Tab] 1 each PO DAILY 07/14 [History] Omeprazole [PriLOSEC] 20 mg PO BID 07/30/15 [History] Pzdfzpp-Belsyykcw-Atmr Tablet 1 tab PO DAILY 11/08/15 [History] Baclofen 20 mg PO TID 05/04/17 [History] Fluticasone Propionate Nasal [Flonase] 2 spr NS DAILY 05/04/17 [History] Sertraline [Zoloft] 100 mg PO DAILY 05/04/17 [History] Lisinopril [Zestril] 10 mg PO DAILY tablet 05/11/17 [Rx] Melatonin 3 mg PO HS tablet 05/11/17 [Rx] Metoprolol [Lopressor] 12.5 mg PO BID tablet 05/11/17 [Rx] Omeprazole [PriLOSEC] 20 mg PO DAILY@0630 capsule. 05/11/17 [Rx] hydroCHLOROthiazide [Hydrochlorothiazide] 12.5 mg PO BID #0 tablet 05/11/17 [Rx] Allergies/Adverse Reactions: 3 Allergy/AdvReac Type Severity Reaction Status Date / Time celecoxib [From Celebrex] Allergy Intermediate Rash Verified 05/15/16 14:37 codeine AdvReac Severe Confusion Verified 05/15/16 14:37 meperidine [From Demerol] AdvReac Severe Nausea Verified 05/15/16 14:37 gabapentin AdvReac Intermediate Confusion Verified 05/15/16 14:37 - Respiratory Orders Smoking Cessation: Smoking cessation has been advised. For more information, call the [place] Tobacco Quit Line at 5-192-UDXG-NOW. - Lab Orders Lab Orders: CBC, U/A, Thaddeus 17, CXR yearly - Ancillary Orders May use pressure relief devices daily prn, May go on TESS w/family/respon alliance party w /meds at nurse discretion PRN, May consult with Dentist, Radio Mechanic Helper, Brush Operator PRN - Advance Directives Code Status: DNR-Arrest/Don't Intubate - Mobility Orders Chair, Ambulate - Rehabiliation Orders Rehab Potential: Good Rehab Orders: ROM Exercises, Evaluation for Physical Therapy, Evaluation for Occupational Therapy - Treatments Skin tear care topically daily PRN per policy, May check for fecal impaction rectally daily PRN, Fleet enema rectally every other day PRN cleansing purposes - Diet Orders Regular CERTIFICATION: I certify that the transfer of the above named patient to an Extended Care Facility is necessary for the continuing treatment of the diagnosis listed. The above information is true and accurate reflection of patient's current condition. Confidential - Redisclosure prohibited without a patient's written consent.
[2017-05-11 14:24] VITALS: BP 120/70
== END 2017-05-11 19:10 ==
LOC: 3BNU 18:34 → EMEROO 18:34 → SUATTDRO 20:53 → 3BNU 21:10
PROVIDERS: ADMIT Internal Medicine; ATTEND Internal Medicine

== ENCOUNTER 2019-02-07 10:58 | Observation (INO) ==
[2019-02-07 11:34] LABS: Basophils % 0.2 %; Eosinophils # 0.1 K/mcL (0.0-0.6); Eosinophils % 0.6 %; Hemoglobin 12.8 g/dL (11.5-15.4); Immature Granulocytes % 0.3 % (0-4); Lymphocytes # 1.6 K/mcL (0.6-4.6); Lymphocytes % 16.3 %; Mean Corpuscular Hemoglobin 27.4 pg (28.0-33.3); Mean Corpuscular Volume 85.5 fL (83.0-100.0); Mean Platelet Volume 9.7 fL (9.4-12.4); Monocytes # 0.9 K/mcL (0.0-1.3); Monocytes % 8.8 %; Neutrophils # 7.2 K/mcL (1.6-8.9); Platelet Count 275 K/mcL (140-400); Red Blood Count 4.68 M/mcL (3.82-4.97); Red Cell Distribution Width 14.7 % (11.5-14.5); Segmented Neutrophils % 73.8 %; White Blood Count 9.7 K/mcL (4.3-11.1)
[2019-02-07 11:55] LABS: BUN/Creatinine Ratio 20 (6-26); Blood Urea Nitrogen 18 mg/dL (8-23); Calcium 9.9 mg/dL (8.6-10.3); Carbon Dioxide 24 mEq/L (23-29); Chloride 105 mEq/L (98-107); Glucose 102 mg/dL (70-105); Magnesium 2.1 mg/dL (1.6-2.6); Osmolality,Calculated 290 (280-300); Potassium 3.8 mEq/L (3.5-5.1); Sodium 139 mEq/L (136-145); Troponin I < 0.03 ng/mL (< 0.04); eGFR For African Americans > 60 (> 60); eGFR For Non-African Americans > 60 (> 60)
[2019-02-07 12:52] LABS: Bilirubin,Urine Negative (Negative); Blood,Urine Negative (Negative); Clarity,Urine Clear (Clear); Color,Urine Yellow (Yellow); Glucose,Urine (UA) Normal (Normal); Ketones,Urine Trace mg/dL (Negative); Leukocyte Esterase,Urine Negative (Negative); Nitrite,Urine Negative (Negative); PH,Urine 7.5 pH Units (5.0-8.0); Protein,Urine Negative (Neg-Trace); Specific Gravity,Urine 1.015 (1.010-1.025); Urobilinogen,Urine Normal (Normal)
[2019-02-07] MEDS ORDERED: Naloxone 0.4 MG/ML INJ IVP PRN (17:37)
[2019-02-07] MEDS ORDERED: 0.9 % Sodium Chloride 1,000 ML IVC SCH (17:45)
[2019-02-07] MEDS: Baclofen 10 MG TABLET PO SCH (21:39)
[2019-02-08] MEDS: Vitamin E 200 UNIT (90MG) CAPSULE PO SCH (08:01)
[2019-02-08] MEDS: hydroCHLOROthiazide 25 MG TABLET PO SCH (08:01)
[2019-02-08] MEDS: Benzonatate 100 MG CAPSULE PO SCH (08:01)
[2019-02-08] MEDS: Multivit/Ca/Min/Fe/FA 1 TAB TABLET PO SCH (08:01)
[2019-02-08] MEDS: Baclofen 10 MG TABLET PO SCH ×3 (08:01→21:06)
[2019-02-08] MEDS: Fluticasone Propionate Nasal 50 MCG/SPRAY BOTTLE NS SCH (08:01)
[2019-02-08] MEDS: Cholecalciferol (D-3) 1,000 UNIT (25MCG) TABLET PO SCH (08:01)
[2019-02-08] MEDS ORDERED: NON-FORMULARY MEDICATION 1 EACH EACH (Cholecalciferol (Vitamin D3) [Vitamin D3] 5,000 UNIT PO SCH (09:00)
[2019-02-08] MEDS ORDERED: NON-FORMULARY MEDICATION 1 EACH EACH (Calcium Carbonate [Calcium] 500 MG) PO SCH (09:00)
[2019-02-09] MEDS ORDERED: Ondansetron 4 MG/2 ML VIAL IVP PRN (08:14)
[2019-02-09] MEDS: Vitamin E 200 UNIT (90MG) CAPSULE PO SCH (10:06)
[2019-02-09] MEDS: Baclofen 10 MG TABLET PO SCH ×3 (10:06→20:06)
[2019-02-09] MEDS: Benzonatate 100 MG CAPSULE PO SCH (10:06)
[2019-02-09] MEDS: hydroCHLOROthiazide 25 MG TABLET PO SCH (10:06)
[2019-02-09] MEDS: Cholecalciferol (D-3) 1,000 UNIT (25MCG) TABLET PO SCH (10:06)
[2019-02-09] MEDS: Fluticasone Propionate Nasal 50 MCG/SPRAY BOTTLE NS SCH (10:07)
[2019-02-09] MEDS: Multivit/Ca/Min/Fe/FA 1 TAB TABLET PO SCH (10:10)
[2019-02-10] MEDS: Multivit/Ca/Min/Fe/FA 1 TAB TABLET PO SCH (08:08)
[2019-02-10] MEDS: Vitamin E 200 UNIT (90MG) CAPSULE PO SCH (08:08)
[2019-02-10] MEDS: Benzonatate 100 MG CAPSULE PO SCH (08:08)
[2019-02-10] MEDS: Baclofen 10 MG TABLET PO SCH (08:09)
[2019-02-10] MEDS: hydroCHLOROthiazide 25 MG TABLET PO SCH (08:09)
[2019-02-10] MEDS: Cholecalciferol (D-3) 1,000 UNIT (25MCG) TABLET PO SCH (08:09)
[2019-02-10] MEDS: Fluticasone Propionate Nasal 50 MCG/SPRAY BOTTLE NS SCH (08:10)
[2019-02-10 11:00] VITALS: BP 160/75
== END 2019-02-10 12:18 ==
LOC: 3ANU 10:58 → EMEROOARM 10:58 → 3ANU 16:47
PROVIDERS: ADMIT Internal Medicine; ATTEND Internal Medicine

== ENCOUNTER 2021-01-10 09:51 | Inpatient (IN) ==
[2021-01-10 10:33] LABS: Mean Platelet Volume 8.8 fL (9.4-12.4); Red Blood Count 3.45 M/mcL (3.82-4.97)
[2021-01-10 10:35] LABS: Hematocrit 27.2 % (35.3-44.9); Hemoglobin 8.2 g/dL (11.5-15.4); Mean Corpuscular HGB Conc 30.1 g/dL (31.6-35.5); Mean Corpuscular Hemoglobin 23.8 pg (28.0-33.3); Mean Corpuscular Volume 78.8 fL (83.0-100.0); Platelet Count 765 K/mcL (140-400); Red Cell Distribution Width 16.7 % (11.5-14.5)
[2021-01-10 10:50] LABS: Lymphocytes # 8.7 K/mcL (0.6-4.6); Monocytes # 3.1 K/mcL (0.0-1.3); Neutrophils # 19.2 K/mcL (1.6-8.9)
[2021-01-10 10:52] LABS: Platelet Estimate Marked Increase (Normal)
[2021-01-10 10:55] LABS: Alanine Aminotransferase 10 Units/L (7-52); Albumin 2.1 g/dL (3.5-5.7); Albumin/Globulin Ratio 0.7 (1.1-2.2); Alkaline Phosphatase 115 Units/L (34-104); Aspartate Amino Transferase 9 Units/L (13-39); BUN/Creatinine Ratio 41 (6-26); Bilirubin,Total 0.3 mg/dL (0.3-1.0); Blood Urea Nitrogen 37 mg/dL (8-23); Calcium 7.2 mg/dL (8.6-10.3); Carbon Dioxide 19 mEq/L (23-29); Chloride 112 mEq/L (98-107); Globulin 2.9 g/dL (2.4-3.5); Glucose 87 mg/dL (70-105); Osmolality,Calculated 294 (280-300); Potassium 4.4 mEq/L (3.5-5.1); Sodium 138 mEq/L (136-145); Troponin I 0.03 ng/mL (< 0.04); eGFR For African Americans > 60 (> 60); eGFR For Non-African Americans 59 (> 60)
[2021-01-10] MEDS ORDERED: 0.9 % Sodium Chloride 1,000 ML IVC ONE (11:30)
[2021-01-10 11:57] LABS: Bilirubin,Urine Negative (Negative); Blood,Urine Negative (Negative); Clarity,Urine Clear (Clear); Color,Urine Yellow (Yellow); Glucose,Urine (UA) Normal (Normal); Ketones,Urine Negative (Negative); Leukocyte Esterase,Urine Negative (Negative); Nitrite,Urine Negative (Negative); PH,Urine 5.5 pH Units (5.0-8.0); Protein,Urine Trace mg/dL (Neg-Trace); Specific Gravity,Urine > 1.030 (1.010-1.025)
[2021-01-10] MEDS ORDERED: 0.9 % Sodium Chloride 500 ML IVC ONE (14:45)
[2021-01-10] MEDS ORDERED: Naloxone 0.4 MG/ML INJ IVP PRN (17:35)
[2021-01-10] MEDS: Piperacillin/Tazobactam 3.375 GM in 0.9 % Sodium Chloride Mini Bag 100 ML IVPB SCH (20:17)
[2021-01-10] MEDS: Ringers Solution, Lactated 1,000 ML IVC SCH (23:40)
[2021-01-11 01:27] LABS: Basophils % 0.1 %; Eosinophils % 0.1 %; Hematocrit 23.9 % (35.3-44.9); Immature Granulocytes % 0.6 % (0-4); Lymphocytes # 5.4 K/mcL (0.6-4.6); Mean Corpuscular HGB Conc 29.3 g/dL (31.6-35.5); Mean Corpuscular Hemoglobin 23.3 pg (28.0-33.3); Mean Corpuscular Volume 79.4 fL (83.0-100.0); Mean Platelet Volume 8.7 fL (9.4-12.4); Monocytes # 1.2 K/mcL (0.0-1.3); Monocytes % 5.6 %; Platelet Count 603 K/mcL (140-400); Red Blood Count 3.01 M/mcL (3.82-4.97); Red Cell Distribution Width 16.8 % (11.5-14.5); Segmented Neutrophils % 68.6 %; White Blood Count 21.5 K/mcL (4.3-11.1)
[2021-01-11 01:29] LABS: Immature Reticulocyte % 43.4 % (11.0-38.0); Retculocyte # 0.09 M/mcL (0.05-0.10); Reticulocyte % 3.1 % (1.6-2.8)
[2021-01-11 01:30] LABS: Neutrophils # 14.8 K/mcL (1.6-8.9)
[2021-01-11 01:44] LABS: BUN/Creatinine Ratio 39 (6-26); Blood Urea Nitrogen 27 mg/dL (8-23); Calcium 6.5 mg/dL (8.6-10.3); Carbon Dioxide 17 mEq/L (23-29); Chloride 114 mEq/L (98-107); Glucose 84 mg/dL (70-105); Magnesium 1.8 mg/dL (1.6-2.6); Osmolality,Calculated 290 (280-300); Phosphorous 3.1 mg/dL (2.7-4.5); Sodium 138 mEq/L (136-145); eGFR For African Americans > 60 (> 60); eGFR For Non-African Americans > 60 (> 60)
[2021-01-11 01:46] LABS: Large Platelets Present (Not Present); Platelet Estimate Increased (Normal); Smudge Cells Present (Not Present)
[2021-01-11 01:50] LABS: Anisocytosis 1+ (Not Present); Microcytosis Present (Not Present)
[2021-01-11] MEDS: Piperacillin/Tazobactam 3.375 GM in 0.9 % Sodium Chloride Mini Bag 100 ML IVPB SCH (03:52)
[2021-01-11] MEDS: Ondansetron 4 MG/2 ML VIAL IVP PRN (04:20)
[2021-01-11 07:53] LABS: Adenovirus F 40/41 PCR Not detected (Not detect); Astrovirus PCR Not detected (Not detect); Campylobacter by PCR Not detected (Not detect); Cryptosporidium by PCR Not detected (Not detect); Cyclospora cayetanensis PCR Not detected (Not detect); E. coli O157 by PCR Not detected (Not detect); Entamoeba histolytica PCR Not detected (Not detect); Enteroaggregative E.coli(EAEC) Not detected (Not detect); Enteropathogenic E.coli(EPEC) Not detected (Not detect); Enterotoxigenic E.coli (ETEC) Not detected (Not detect); Giardia lamblia PCR Not detected (Not detect); Norovirus GI/GII PCR Not detected (Not detect); Plesiomonas shigelloides PCR Not detected (Not detect); Rotavirus A PCR Not detected (Not detect); Salmonella PCR Not detected (Not detect); Sapovirus PCR Not detected (Not detect); Shig/EnteroinvasiveE coli EIEC Not detected (Not detect); Shigalike tox-prod E coli STEC Not detected (Not detect); Vibrio PCR Not detected (Not detect); Vibrio cholerae PCR Not detected (Not detect); Yersinia enterocolitica PCR Not detected (Not detect)
[2021-01-11 07:58] LABS: C.difficile Toxin A/B Gene PCR DETECTED (Not detect)
[2021-01-11] MEDS ORDERED: 0.9 % Sodium Chloride 1,000 ML IVC SCH (09:00)
[2021-01-11] MEDS: Calcium Gluconate 1gm/50mL 1 GM/50 ML BAG IVPB SCH ×2 (11:44→19:21)
[2021-01-11] MEDS: Ringers Solution, Lactated 1,000 ML IVC SCH ×3 (11:44→19:22)
[2021-01-11] MEDS: Vancomycin Oral Soln 125 MG/2.5 ML UDC PO SCH ×4 (11:45→20:02)
[2021-01-11] MEDS: MetroNIDAZOLE 500 MG/100 ML 500 MG/100 ML BAG IVPB SCH ×2 (15:29→23:11)
[2021-01-11] MEDS: BuPROPion XL (24 HR) 150 MG TABLET PO SCH (17:46)
[2021-01-11 18:08] LABS: Hematocrit 24.1 % (35.3-44.9)
[2021-01-11] MEDS: traZODone 50 MG TABLET PO SCH (20:01)
[2021-01-11] MEDS: Pregabalin 50 MG CAPSULE PO SCH (20:01)
[2021-01-11] MEDS: Mirtazapine 15 MG TABLET PO SCH (20:02)
[2021-01-11] MEDS: Diclofenac Sodium (DR) 75 MG TABLET.DR PO SCH (20:02)
[2021-01-11] MEDS: clonazePAM 0.5 MG TABLET PO SCH (20:02)
[2021-01-11] MEDS: Acetaminophen 325 MG TABLET PO PRN (21:18)
[2021-01-12] MEDS: Acetaminophen 325 MG TABLET PO PRN ×2 (05:57→14:44)
[2021-01-12 07:25] LABS: BUN/Creatinine Ratio 20 (6-26); Blood Urea Nitrogen 14 mg/dL (8-23); Calcium 6.9 mg/dL (8.6-10.3); Carbon Dioxide 19 mEq/L (23-29); Chloride 116 mEq/L (98-107); Glucose 65 mg/dL (70-105); Magnesium 1.8 mg/dL (1.6-2.6); Osmolality,Calculated 289 (280-300); Phosphorous 2.9 mg/dL (2.7-4.5); Potassium 3.7 mEq/L (3.5-5.1); Sodium 140 mEq/L (136-145); eGFR For African Americans > 60 (> 60); eGFR For Non-African Americans > 60 (> 60)
[2021-01-12] MEDS: Vancomycin Oral Soln 125 MG/2.5 ML UDC PO SCH ×4 (08:19→19:51)
[2021-01-12] MEDS: Multivit/Ca/Min/Fe/FA 1 TAB TABLET PO SCH (08:19)
[2021-01-12] MEDS: Pregabalin 50 MG CAPSULE PO SCH ×2 (08:19→19:51)
[2021-01-12] MEDS: MetroNIDAZOLE 500 MG/100 ML 500 MG/100 ML BAG IVPB SCH ×3 (08:19→23:15)
[2021-01-12] MEDS: BuPROPion XL (24 HR) 150 MG TABLET PO SCH (08:19)
[2021-01-12] MEDS: Diclofenac Sodium (DR) 75 MG TABLET.DR PO SCH ×2 (08:19→19:52)
[2021-01-12] MEDS: Cholecalciferol (D-3) 1,000 UNIT (25MCG) TABLET PO SCH (08:19)
[2021-01-12 11:38] LABS: Basophils % 0.2 %; Eosinophils # 0.1 K/mcL (0.0-0.6); Eosinophils % 0.6 %; Hematocrit 23.1 % (35.3-44.9); Hemoglobin 6.7 g/dL (11.5-15.4); Immature Granulocytes % 1.1 % (0-4); Lymphocytes # 4.5 K/mcL (0.6-4.6); Lymphocytes % 36.7 %; Mean Corpuscular Hemoglobin 23.4 pg (28.0-33.3); Mean Corpuscular Volume 80.8 fL (83.0-100.0); Mean Platelet Volume 8.6 fL (9.4-12.4); Monocytes # 0.9 K/mcL (0.0-1.3); Monocytes % 7.1 %; Neutrophils # 6.7 K/mcL (1.6-8.9); Platelet Count 514 K/mcL (140-400); Red Blood Count 2.86 M/mcL (3.82-4.97); Segmented Neutrophils % 54.3 %; White Blood Count 12.3 K/mcL (4.3-11.1)
[2021-01-12 11:46] LABS: Reactive Lymphocytes Present (Not Present)
[2021-01-12] MEDS ORDERED: 0.9 % Sodium Chloride 250 ML ONE (12:36)
[2021-01-12] MEDS: Pantoprazole 40 MG VIAL IVP SCH (17:11)
[2021-01-12] MEDS: traZODone 50 MG TABLET PO SCH (19:51)
[2021-01-12] MEDS: clonazePAM 0.5 MG TABLET PO SCH (19:51)
[2021-01-12] MEDS: Mirtazapine 15 MG TABLET PO SCH (19:52)
[2021-01-13] MEDS: Acetaminophen 325 MG TABLET PO PRN ×2 (03:16→14:27)
[2021-01-13] MEDS: Pantoprazole 40 MG VIAL IVP SCH ×2 (05:22→16:52)
[2021-01-13 06:18] LABS: Basophils % 0.2 %; Eosinophils # 0.2 K/mcL (0.0-0.6); Eosinophils % 1.1 %; Hematocrit 26.6 % (35.3-44.9); Immature Granulocytes % 1.1 % (0-4); Lymphocytes # 5.6 K/mcL (0.6-4.6); Lymphocytes % 29.4 %; Mean Corpuscular HGB Conc 30.1 g/dL (31.6-35.5); Mean Corpuscular Hemoglobin 24.5 pg (28.0-33.3); Mean Corpuscular Volume 81.3 fL (83.0-100.0); Mean Platelet Volume 8.5 fL (9.4-12.4); Monocytes # 1.2 K/mcL (0.0-1.3); Monocytes % 6.1 %; Neutrophils # 11.8 K/mcL (1.6-8.9); Platelet Count 512 K/mcL (140-400); Red Blood Count 3.27 M/mcL (3.82-4.97); Red Cell Distribution Width 16.6 % (11.5-14.5); Segmented Neutrophils % 62.1 %
[2021-01-13 06:20] LABS: Platelet Estimate Increased (Normal); Reactive Lymphocytes Present (Not Present)
[2021-01-13 06:36] LABS: BUN/Creatinine Ratio 19 (6-26); Blood Urea Nitrogen 15 mg/dL (8-23); Calcium 6.7 mg/dL (8.6-10.3); Carbon Dioxide 18 mEq/L (23-29); Chloride 114 mEq/L (98-107); Glucose 88 mg/dL (70-105); Osmolality,Calculated 284 (280-300); Potassium 3.1 mEq/L (3.5-5.1); Sodium 137 mEq/L (136-145); eGFR For African Americans > 60 (> 60); eGFR For Non-African Americans > 60 (> 60)
[2021-01-13] MEDS: MetroNIDAZOLE 500 MG/100 ML 500 MG/100 ML BAG IVPB SCH ×2 (07:31→16:52)
[2021-01-13] MEDS: BuPROPion XL (24 HR) 150 MG TABLET PO SCH (07:31)
[2021-01-13] MEDS: Multivit/Ca/Min/Fe/FA 1 TAB TABLET PO SCH (07:31)
[2021-01-13] MEDS: Vancomycin Oral Soln 125 MG/2.5 ML UDC PO SCH ×4 (07:31→20:24)
[2021-01-13] MEDS: Diclofenac Sodium (DR) 75 MG TABLET.DR PO SCH ×2 (07:31→20:42)
[2021-01-13] MEDS: Cholecalciferol (D-3) 1,000 UNIT (25MCG) TABLET PO SCH (07:31)
[2021-01-13] MEDS: Pregabalin 50 MG CAPSULE PO SCH ×2 (07:31→20:28)
[2021-01-13] MEDS: Ondansetron 4 MG/2 ML VIAL IVP PRN ×2 (09:01→18:45)
[2021-01-13] MEDS: Calcium Gluconate 1gm/50mL 1 GM/50 ML BAG IVPB SCH ×2 (09:02→10:26)
[2021-01-13] MEDS: traZODone 50 MG TABLET PO SCH ×2 (20:25→20:27)
[2021-01-13] MEDS: Mirtazapine 15 MG TABLET PO SCH (20:26)
[2021-01-13] MEDS: clonazePAM 0.5 MG TABLET PO SCH (20:29)
[2021-01-14] MEDS: MetroNIDAZOLE 500 MG/100 ML 500 MG/100 ML BAG IVPB SCH ×3 (00:12→16:52)
[2021-01-14 05:28] LABS: Basophils % 0.3 %; Eosinophils # 0.2 K/mcL (0.0-0.6); Eosinophils % 1.2 %; Hematocrit 30.3 % (35.3-44.9); Hemoglobin 8.8 g/dL (11.5-15.4); Immature Granulocytes % 1.3 % (0-4); Lymphocytes # 5.5 K/mcL (0.6-4.6); Lymphocytes % 36.6 %; Mean Corpuscular Volume 82.8 fL (83.0-100.0); Mean Platelet Volume 8.5 fL (9.4-12.4); Monocytes # 0.9 K/mcL (0.0-1.3); Monocytes % 6.2 %; Neutrophils # 8.1 K/mcL (1.6-8.9); Nucleated Red Blood Cells 0.1 /100 WBC (0); Platelet Count 613 K/mcL (140-400); Red Blood Count 3.66 M/mcL (3.82-4.97); Red Cell Distribution Width 17.2 % (11.5-14.5); Segmented Neutrophils % 54.4 %; White Blood Count 14.9 K/mcL (4.3-11.1)
[2021-01-14 05:46] LABS: BUN/Creatinine Ratio 15 (6-26); Blood Urea Nitrogen 12 mg/dL (8-23); Carbon Dioxide 20 mEq/L (23-29); Chloride 114 mEq/L (98-107); Glucose 100 mg/dL (70-105); Osmolality,Calculated 286 (280-300); Potassium 3.9 mEq/L (3.5-5.1); Sodium 138 mEq/L (136-145); eGFR For African Americans > 60 (> 60); eGFR For Non-African Americans > 60 (> 60)
[2021-01-14 06:01] LABS: Platelet Estimate Marked Increase (Normal); Reactive Lymphocytes Present (Not Present); Smudge Cells Present (Not Present)
[2021-01-14] MEDS: Pantoprazole 40 MG VIAL IVP SCH (06:32)
[2021-01-14] MEDS: BuPROPion XL (24 HR) 150 MG TABLET PO SCH (10:21)
[2021-01-14] MEDS: Vancomycin Oral Soln 125 MG/2.5 ML UDC PO SCH ×4 (10:21→21:05)
[2021-01-14] MEDS: Pregabalin 50 MG CAPSULE PO SCH ×2 (10:22→21:04)
[2021-01-14] MEDS: Cholecalciferol (D-3) 1,000 UNIT (25MCG) TABLET PO SCH (10:22)
[2021-01-14] MEDS: Multivit/Ca/Min/Fe/FA 1 TAB TABLET PO SCH (10:22)
[2021-01-14] MEDS: Diclofenac Sodium (DR) 75 MG TABLET.DR PO SCH (10:22)
[2021-01-14] MEDS: Acetaminophen 325 MG TABLET PO PRN (16:54)
[2021-01-14] MEDS: traZODone 50 MG TABLET PO SCH (21:03)
[2021-01-14] MEDS: clonazePAM 0.5 MG TABLET PO SCH (21:05)
[2021-01-14] MEDS: Mirtazapine 15 MG TABLET PO SCH (21:05)
[2021-01-14] MEDS ORDERED: Acetaminophen IV 1,000 MG/100 ML BAG IVPB ONE (22:52)
[2021-01-15] MEDS: MetroNIDAZOLE 500 MG/100 ML 500 MG/100 ML BAG IVPB SCH ×3 (00:28→15:42)
[2021-01-15 04:30] LABS: Basophils # 0.1 K/mcL (0.0-0.2); Basophils % 0.3 %; Eosinophils # 0.2 K/mcL (0.0-0.6); Hematocrit 27.3 % (35.3-44.9); Hemoglobin 8.2 g/dL (11.5-15.4); Immature Granulocytes % 1.2 % (0-4); Lymphocytes # 4.1 K/mcL (0.6-4.6); Lymphocytes % 23.5 %; Mean Corpuscular Hemoglobin 24.6 pg (28.0-33.3); Mean Corpuscular Volume 81.7 fL (83.0-100.0); Mean Platelet Volume 8.4 fL (9.4-12.4); Monocytes % 5.6 %; Neutrophils # 11.9 K/mcL (1.6-8.9); Nucleated Red Blood Cells 0.1 /100 WBC (0); Platelet Count 509 K/mcL (140-400); Red Blood Count 3.34 M/mcL (3.82-4.97); Segmented Neutrophils % 68.4 %; White Blood Count 17.4 K/mcL (4.3-11.1)
[2021-01-15 04:50] LABS: BUN/Creatinine Ratio 20 (6-26); Blood Urea Nitrogen 13 mg/dL (8-23); Calcium 6.8 mg/dL (8.6-10.3); Carbon Dioxide 17 mEq/L (23-29); Chloride 116 mEq/L (98-107); Glucose 81 mg/dL (70-105); Osmolality,Calculated 283 (280-300); Potassium 4.3 mEq/L (3.5-5.1); Sodium 137 mEq/L (136-145); eGFR For African Americans > 60 (> 60); eGFR For Non-African Americans > 60 (> 60)
[2021-01-15] MEDS: Pregabalin 50 MG CAPSULE PO SCH ×2 (08:47→20:53)
[2021-01-15] MEDS: Cholecalciferol (D-3) 1,000 UNIT (25MCG) TABLET PO SCH (08:47)
[2021-01-15] MEDS: Multivit/Ca/Min/Fe/FA 1 TAB TABLET PO SCH (08:48)
[2021-01-15] MEDS: Vancomycin Oral Soln 125 MG/2.5 ML UDC PO SCH ×4 (08:48→20:54)
[2021-01-15] MEDS: BuPROPion XL (24 HR) 150 MG TABLET PO SCH (08:48)
[2021-01-15] MEDS: *HR* OxyCODONE/APAP 5/325 TABLET PO PRN (15:43)
[2021-01-15] MEDS: clonazePAM 0.5 MG TABLET PO SCH (20:53)
[2021-01-15] MEDS: Mirtazapine 15 MG TABLET PO SCH (20:53)
[2021-01-15] MEDS: traZODone 50 MG TABLET PO SCH (20:53)
[2021-01-16] MEDS: MetroNIDAZOLE 500 MG/100 ML 500 MG/100 ML BAG IVPB SCH ×3 (01:27→16:19)
[2021-01-16] MEDS: *HR* OxyCODONE/APAP 5/325 TABLET PO PRN ×3 (04:12→18:19)
[2021-01-16 08:41] LABS: White Blood Count 17.6 K/mcL (4.3-11.1)
[2021-01-16 08:42] LABS: Basophils # 0.1 K/mcL (0.0-0.2); Basophils % 0.3 %; Eosinophils # 0.3 K/mcL (0.0-0.6); Eosinophils % 1.5 %; Hematocrit 28.5 % (35.3-44.9); Hemoglobin 8.4 g/dL (11.5-15.4); Immature Granulocytes % 1.2 % (0-4); Lymphocytes # 6.3 K/mcL (0.6-4.6); Lymphocytes % 35.6 %; Mean Corpuscular HGB Conc 29.5 g/dL (31.6-35.5); Mean Corpuscular Hemoglobin 24.6 pg (28.0-33.3); Mean Corpuscular Volume 83.3 fL (83.0-100.0); Mean Platelet Volume 8.3 fL (9.4-12.4); Monocytes # 1.2 K/mcL (0.0-1.3); Monocytes % 6.9 %; Neutrophils # 9.6 K/mcL (1.6-8.9); Platelet Count 492 K/mcL (140-400); Red Blood Count 3.42 M/mcL (3.82-4.97); Red Cell Distribution Width 19.2 % (11.5-14.5); Segmented Neutrophils % 54.5 %
[2021-01-16 09:00] LABS: BUN/Creatinine Ratio 19 (6-26); Blood Urea Nitrogen 13 mg/dL (8-23); Calcium 7.1 mg/dL (8.6-10.3); Carbon Dioxide 20 mEq/L (23-29); Chloride 113 mEq/L (98-107); Glucose 90 mg/dL (70-105); Magnesium 1.5 mg/dL (1.6-2.6); Osmolality,Calculated 282 (280-300); Phosphorous 1.9 mg/dL (2.7-4.5); Potassium 4.2 mEq/L (3.5-5.1); Sodium 136 mEq/L (136-145); eGFR For African Americans > 60 (> 60); eGFR For Non-African Americans > 60 (> 60)
[2021-01-16 09:25] LABS: Reactive Lymphocytes Present (Not Present)
[2021-01-16] MEDS: Pregabalin 50 MG CAPSULE PO SCH ×2 (10:02→19:53)
[2021-01-16] MEDS: Cholecalciferol (D-3) 1,000 UNIT (25MCG) TABLET PO SCH (10:03)
[2021-01-16] MEDS: Multivit/Ca/Min/Fe/FA 1 TAB TABLET PO SCH (10:03)
[2021-01-16] MEDS: BuPROPion XL (24 HR) 150 MG TABLET PO SCH (10:03)
[2021-01-16] MEDS: Vancomycin Oral Soln 125 MG/2.5 ML UDC PO SCH ×4 (10:04→19:53)
[2021-01-16] MEDS: Calcium Gluconate 1gm/50mL 1 GM/50 ML BAG IVPB SCH ×2 (12:49→16:20)
[2021-01-16] MEDS: traZODone 50 MG TABLET PO SCH (19:52)
[2021-01-16] MEDS: Mirtazapine 15 MG TABLET PO SCH (19:53)
[2021-01-16] MEDS: clonazePAM 0.5 MG TABLET PO SCH (19:56)
[2021-01-16] MEDS ORDERED: Melatonin 3 MG TABLET PO PRN (21:35)
[2021-01-17] MEDS: MetroNIDAZOLE 500 MG/100 ML 500 MG/100 ML BAG IVPB SCH ×3 (00:01→16:11)
[2021-01-17] MEDS: *HR* OxyCODONE/APAP 5/325 TABLET PO PRN ×5 (00:20→23:55)
[2021-01-17 01:18] LABS: Basophils # 0.1 K/mcL (0.0-0.2); Basophils % 0.3 %; Eosinophils # 0.4 K/mcL (0.0-0.6); Eosinophils % 2.4 %; Hematocrit 26.3 % (35.3-44.9); Hemoglobin 8.2 g/dL (11.5-15.4); Immature Granulocytes % 0.8 % (0-4); Lymphocytes # 5.8 K/mcL (0.6-4.6); Lymphocytes % 37.1 %; Mean Corpuscular HGB Conc 31.2 g/dL (31.6-35.5); Mean Corpuscular Hemoglobin 25.2 pg (28.0-33.3); Mean Corpuscular Volume 80.9 fL (83.0-100.0); Mean Platelet Volume 8.5 fL (9.4-12.4); Monocytes # 1.4 K/mcL (0.0-1.3); Monocytes % 8.8 %; Neutrophils # 7.9 K/mcL (1.6-8.9); Platelet Count 478 K/mcL (140-400); Red Blood Count 3.25 M/mcL (3.82-4.97); Red Cell Distribution Width 19.5 % (11.5-14.5); Segmented Neutrophils % 50.6 %; White Blood Count 15.6 K/mcL (4.3-11.1)
[2021-01-17 01:30] LABS: BUN/Creatinine Ratio 17 (6-26); Blood Urea Nitrogen 11 mg/dL (8-23); Calcium 7.1 mg/dL (8.6-10.3); Carbon Dioxide 23 mEq/L (23-29); Chloride 111 mEq/L (98-107); Glucose 100 mg/dL (70-105); Magnesium 2.1 mg/dL (1.6-2.6); Osmolality,Calculated 281 (280-300); Phosphorous 2.1 mg/dL (2.7-4.5); Potassium 4.1 mEq/L (3.5-5.1); Sodium 136 mEq/L (136-145); eGFR For African Americans > 60 (> 60); eGFR For Non-African Americans > 60 (> 60)
[2021-01-17 01:31] LABS: Iron 19 mcg/dL (50-170)
[2021-01-17 01:42] LABS: Hypochromasia Present (Not Present); Reactive Lymphocytes Present (Not Present)
[2021-01-17 01:48] LABS: Ferritin 252 ng/mL (10-120)
[2021-01-17 01:52] LABS: Folate 15.1 ng/mL (3.0-16.0)
[2021-01-17 02:07] LABS: % Iron Saturation 14 % (15-50); Transferrin 100 mg/dL (203-362)
[2021-01-17] MEDS: Ondansetron 4 MG/2 ML VIAL IVP PRN (06:15)
[2021-01-17] MEDS: Calcium Gluconate 1gm/50mL 1 GM/50 ML BAG IVPB SCH ×2 (08:33→12:06)
[2021-01-17] MEDS: Pregabalin 50 MG CAPSULE PO SCH ×2 (08:33→20:11)
[2021-01-17] MEDS: Cholecalciferol (D-3) 1,000 UNIT (25MCG) TABLET PO SCH (08:34)
[2021-01-17] MEDS: BuPROPion XL (24 HR) 150 MG TABLET PO SCH (08:34)
[2021-01-17] MEDS: Multivit/Ca/Min/Fe/FA 1 TAB TABLET PO SCH (08:35)
[2021-01-17] MEDS: Vancomycin Oral Soln 125 MG/2.5 ML UDC PO SCH ×4 (08:35→20:12)
[2021-01-17] MEDS: Lactobacillus 1 EACH CAP.SPRINK PO SCH ×2 (08:35→20:11)
[2021-01-17] MEDS ORDERED: Iron Sucrose Complex 400 MG in 0.9 % Sodium Chloride 250 ML IVPB ONE (09:00)
[2021-01-17] MEDS: clonazePAM 0.5 MG TABLET PO SCH (20:11)
[2021-01-17] MEDS: Mirtazapine 15 MG TABLET PO SCH (20:11)
[2021-01-17] MEDS: traZODone 50 MG TABLET PO SCH (20:12)
[2021-01-18] MEDS: MetroNIDAZOLE 500 MG/100 ML 500 MG/100 ML BAG IVPB SCH ×3 (01:21→16:00)
[2021-01-18 02:24] LABS: Basophils # 0.1 K/mcL (0.0-0.2); Basophils % 0.5 %; Eosinophils # 0.4 K/mcL (0.0-0.6); Eosinophils % 2.4 %; Hematocrit 29.8 % (35.3-44.9); Hemoglobin 8.8 g/dL (11.5-15.4); Immature Granulocytes % 1.1 % (0-4); Lymphocytes % 48.1 %; Mean Corpuscular HGB Conc 29.5 g/dL (31.6-35.5); Mean Corpuscular Hemoglobin 24.6 pg (28.0-33.3); Mean Corpuscular Volume 83.2 fL (83.0-100.0); Mean Platelet Volume 8.4 fL (9.4-12.4); Monocytes # 1.2 K/mcL (0.0-1.3); Monocytes % 8.3 %; Neutrophils # 5.7 K/mcL (1.6-8.9); Platelet Count 488 K/mcL (140-400); Red Blood Count 3.58 M/mcL (3.82-4.97); Red Cell Distribution Width 20.6 % (11.5-14.5); Segmented Neutrophils % 39.6 %; White Blood Count 14.5 K/mcL (4.3-11.1)
[2021-01-18 02:49] LABS: BUN/Creatinine Ratio 19 (6-26); Blood Urea Nitrogen 13 mg/dL (8-23); Calcium 7.3 mg/dL (8.6-10.3); Carbon Dioxide 24 mEq/L (23-29); Chloride 109 mEq/L (98-107); Glucose 98 mg/dL (70-105); Magnesium 1.8 mg/dL (1.6-2.6); Osmolality,Calculated 286 (280-300); Phosphorous 2.6 mg/dL (2.7-4.5); Potassium 3.9 mEq/L (3.5-5.1); Sodium 138 mEq/L (136-145); eGFR For African Americans > 60 (> 60); eGFR For Non-African Americans > 60 (> 60)
[2021-01-18 02:53] LABS: Anisocytosis 1+ (Not Present); Hypochromasia Present (Not Present); Platelet Estimate Normal (Normal); Poikilocytosis 1+ (Not Present); Polychromasia 1+ (Not Present); Reactive Lymphocytes Present (Not Present); Smudge Cells Present (Not Present); Toxic Granulation Present (Not Present)
[2021-01-18] MEDS: *HR* OxyCODONE/APAP 5/325 TABLET PO PRN ×2 (06:13→12:18)
[2021-01-18] MEDS ORDERED: Calcium Gluconate 1gm/50mL 1 GM/50 ML BAG IVPB SCH (07:30)
[2021-01-18] MEDS: Pregabalin 50 MG CAPSULE PO SCH (08:00)
[2021-01-18] MEDS: BuPROPion XL (24 HR) 150 MG TABLET PO SCH (10:43)
[2021-01-18] MEDS: Lactobacillus 1 EACH CAP.SPRINK PO SCH (10:45)
[2021-01-18] MEDS: Vancomycin Oral Soln 125 MG/2.5 ML UDC PO SCH ×2 (10:45→12:18)
[2021-01-18] MEDS: Multivit/Ca/Min/Fe/FA 1 TAB TABLET PO SCH (10:45)
[2021-01-18] MEDS: Cholecalciferol (D-3) 1,000 UNIT (25MCG) TABLET PO SCH (10:46)
[2021-01-18 11:11] VITALS: BP 109/66; PULSE 97; TEMP 98.2; O2SAT 94
[2021-01-18 13:49] LABS: Adenovirus Not Detected (Not Detect); Bordetella Pertussis Not Detected (Not Detect); Chlamydophila pneumoniae Not Detected (Not Detect); Coronavirus 229E Not Detected (Not Detect); Coronavirus HKU1 Not Detected (Not Detect); Coronavirus NL63 Not Detected (Not Detect); Coronavirus OC43 Not Detected (Not Detect); Human Metapneumovirus Not Detected (Not Detect); Human Rhinovirus/Enterovirus Not Detected (Not Detect); Influenza A Subtype 2009 H1 Not Detected (Not Detect); Influenza B Not Detected (Not Detect); Mycoplasma pneumoniae Not Detected (Not Detect); Parainfluenza Virus 1 Not Detected (Not Detect); Parainfluenza Virus 2 Not Detected (Not Detect); Parainfluenza Virus 3 Not Detected (Not Detect); Parainfluenza Virus 4 Not Detected (Not Detect); Respiratory Syncytial Virus Not Detected (Not Detect); SARS-CoV-2 Not Detected (Not Detect)
== END 2021-01-18 18:36 | DRG 872 ==
LOC: EMEROOARM 09:51 → 3ANU 09:51 → SUATTDRO 01-12 17:23
PROVIDERS: ADMIT Pharmacist; ATTEND Internal Medicine